=== PATIENT | male | born 1965 | race Caucasian/White ===

== ENCOUNTER 2018-10-31 20:31 | Inpatient (IN) | payer MEDICAID ==
[~2018-10-31] VITALS: Ht 167.6 cm; Wt 69.9 kg
[~2018-10-31 20:31] MED LIST: ACET-787 PO; BACL10TA4 PO; BISA10SU1 RC; DETLA4 PO; DIAZ10TA7 PO; DOCU-299 PO; ELA25 PO; GABA400C PO; HYD2.5O TP; KETO2CRE3 TP; MSCON15 PO; NITR100C7 PO; OMEP40EC1 PO; SILV-22 TP; SUCR1TAB35 PO; TEMA15CA24 PO; TIZA4CAP PO; [UNRECOGNIZED DRUG - CODE] PO
[2018-10-31 20:38] VITALS: BP 142/72
--- NOTE | 2018-10-31 20:38 | NUR ---
TO BED # 04 VIA W/C, REPORT GIVEN TO MACEY HOLDEN
--- NOTE | 2018-10-31 21:07 | NUR ---
PT TO ED WITH C/O ABNORMAL LABS. PER PT "MY SEMICONDUCTOR PROCESSOR CALLED ME AND SAID MY BLOOD COUNT IS OFF AND THAT I NEEDED TO COME TO THE NEAREST EMERGENCY DEPT." PT IS UNABLE TO CONFIRM WHAT LAB VALUES ARE ABNORMAL. PT PLACED INTO BED, PENDING MD CRAWFORD.
[2018-10-31] MEDS ORDERED: NACL 0.9% 1,000 ML IV ONE ×2 (21:35→22:45)
[2018-10-31] MEDS ORDERED: MORPHINE SULFATE 4 MG/ML SYR IVP ONE (21:35)
[2018-10-31 22:07] LABS: BASOPHILS % (AUTO) 0.4 % (0.0-2.0); EOSINOPHILS # (AUTO) 0.2 K/uL (0-0.4); EOSINOPHILS % (AUTO) 2.1 % (0.0-4.0); HEMATOCRIT 28.4 % (36-52); HEMOGLOBIN 9.8 g/dL (12.0-18.0); LYMPHOCYTES # (AUTO) 1.2 K/uL (2.0-11.5); LYMPHOCYTES % (AUTO) 10.8 % (20.5-51.1); MEAN CORPUSCULAR HEMOGLOBIN 31 pg (27-31); MEAN CORPUSCULAR HGB CONC 35 g/dL (33-37); MEAN CORPUSCULAR VOLUME 90.1 fL (80-94); MONOCYTES % (AUTO) 8.3 % (1.7-9.3); NEUTROPHILS % (AUTO) 78.4 % (42.2-75.2); PLATELET COUNT (AUTO) 269 K/uL (140-450); RED BLOOD CELL COUNT(AUTO) 3.15 MIL/uL (4.20-6.10); WHITE BLOOD COUNT (AUTO) 11.5 K/uL (4.8-10.8)
[2018-10-31 22:22] LABS: ALBUMIN 2.5 g/dL (3.4-5.0); ANION GAP 12.7 (8-16); CARBON DIOXIDE 28.4 mmol/L (21-32); CREATININE 0.5 mg/dL (0.7-1.3); POTASSIUM 3.1 mmol/L (3.5-5.1); TOTAL BILIRUBIN 2.2 mg/dL (0.0-1.0)
[2018-10-31 22:32] LABS: APPEARANCE,URINE SL CLOUDY (CLEAR); BILIRUBIN,URINE 1+ (NEGATIVE); BLOOD, URINE TRACE-I (NEGATIVE); COLOR,URINE YELLOW (YELLOW); LEUKOCYTE ESTERASE ,URINE NEGATIVE (NEGATIVE); NITRITE, URINE NEGATIVE (NEGATIVE); PH,URINE 6.5 (5.0-9.0); UGLUCOSE NEGATIVE (NEGATIVE)
[2018-10-31 22:51] LABS: RBC,URINE 0-5 /HPF (0-5)
[2018-10-31] MEDS ORDERED: ACETAMINOPHEN 325 MG TAB PO PRN (23:30)
[2018-10-31] MEDS ORDERED: HYDROcodone/APAP 7.5/325 MG 1 TAB PO PRN (23:30)
[2018-10-31] MEDS ORDERED: DOCUSATE SODIUM 100 MG GELCAP PO PRN (23:30)
[2018-10-31] MEDS ORDERED: cefTRIAXone 1,000 MG VIAL ONE (23:31)
[2018-10-31 23:43] LABS: PROTHROMBIN TIME 10.3 secs (10.8-13.4)
[2018-10-31 23:47] LABS: BARBITURATE, URINE NEG. ng/ml (NEG <=200); BENZODIAZEPINE, URINE POS. ng/mL (NEG <=200); CANNABINOID, URINE POS. ng/mL (NEG <=50); COCAINE, URINE NEG. ng/mL (NEG <=300); OPIATE, URINE NEG. ng/mL (NEG <=2000); PHENCYCLIDINE SCREEN,URINE NEG. ng/mL (NEG <=25)
--- NOTE | 2018-10-31 23:52 | NUR ---
Patient will be admitted to care of DR APODACA. Admited to MED SURG. Will go to room 111-B. Belongings list completed. Report to NAVIN PEDRAZA.
[2018-10-31 23:55] LABS: FREE T4 (FREE THYROXINE) 1.15 ng/dL (0.76-1.46); MAGNESIUM 1.9 mg/dL (1.8-2.4); PHOSPHORUS 2.5 mg/dL (2.5-4.9); THYROID STIMULATING HORMONE 0.96 uIU/mL (0.34-3.74)
[2018-11-01 00:20] VITALS: BP 124/68
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
[2018-11-01] MEDS: NACL 0.9% 1,000 ML IV SCH ×2 (00:29→12:30)
[2018-11-01] MEDS: ONDANSETRON 4 MG/2 ML VIAL IM/IVP PRN ×2 (00:48→08:13)
--- NOTE | 2018-11-01 00:48 | NUR ---
PATIENT COMPLAINED FEELING NAUSEOUS. PRN ZOFRAN ADMINISTER PER ORDER. WILL CONTINUE TO MONITOR.
--- NOTE | 2018-11-01 01:00 | NUR ---
PATIENT IV INFILTRATED. DISCONTINUE NO ACTIVE BLEEDING SEEN. CANNULA INTACT. INSERTED NEW IV LINE TO LEFT FOREARM 24G AND TOLERATED WELL. WILL CONTINUE TO MONITOR
--- NOTE | 2018-11-01 02:00 | NUR ---
CASTELLANOS INSERTED. PATIENT TOLERATED WELL
--- NOTE | 2018-11-01 04:00 | NUR ---
CHECKED PATIENT. PATIENT SLEEPING RESPIRATION EVEN UNLABORED ON ROOM AIR. NO DISTRESS NOTED. WILL CONTINUE TO MONITOR.
[2018-11-01 07:00] LABS: BASOPHILS # (AUTO) 0.1 K/uL (0.00-0.22); BASOPHILS % (AUTO) 0.5 % (0.0-2.0); EOSINOPHILS # (AUTO) 0.2 K/uL (0-0.4); EOSINOPHILS % (AUTO) 1.8 % (0.0-4.0); LYMPHOCYTES # (AUTO) 1.1 K/uL (2.0-11.5); LYMPHOCYTES % (AUTO) 9.7 % (20.5-51.1); MEAN CORPUSCULAR HEMOGLOBIN 31 pg (27-31); MEAN CORPUSCULAR HGB CONC 35 g/dL (33-37); MEAN CORPUSCULAR VOLUME 90.4 fL (80-94); MONOCYTES # (AUTO) 0.9 K/uL (0.8-1.0); MONOCYTES % (AUTO) 7.4 % (1.7-9.3); NEUTROPHILS # (AUTO) 9.5 K/uL (1.8-7.7); NEUTROPHILS % (AUTO) 80.6 % (42.2-75.2); PLATELET COUNT (AUTO) 258 K/uL (140-450); RED BLOOD CELL COUNT(AUTO) 2.87 MIL/uL (4.20-6.10); RED CELL DISTRIBUTION WIDTH 13.9 % (11.6-13.7); WHITE BLOOD COUNT (AUTO) 11.8 K/uL (4.8-10.8)
[2018-11-01 07:06] LABS: ANION GAP 14.7 (8-16); CREATININE 0.3 mg/dL (0.7-1.3)
--- NOTE | 2018-11-01 07:20 | NUR ---
ENDORSED PATIENT TO DAY SHIFT NURSE FOR CONTINUITY OF CARE. PATIENT IS STABLE.
--- NOTE | 2018-11-01 07:21 | NUR ---
RECEIVED REPORT FROM HOSPITAL CARRIER NURSE. PATIENT LYING DOWN IN BED, NO DISTRESS NOTED. COMPLAINS OF SHOULDER PAIN THAT IS WITHIN TOLERABLE AT THIS TIME. AAOX4, CALM, COOPERATIVE, PARAPLEGIC FROM WAIST DOWN. SKIN INTACT. IV SITE INTACT, PATENT, AND INFUSING IVF PER MD ORDERS. ABDOMEN SOFT, NON-DISTENDED. LUNGS CTA ON ALL LOBES. REVIEWED PLAN OF CARE WITH PATIENT. PATIENT VERBALIZED UNDERSTANDING. SAFETY MEASURES IN PLACE, CALL LIGHT WITHIN REACH. WILL CONTINUE TO MONITOR.
[2018-11-01 07:45] LABS: POTASSIUM 2.7 mmol/L (3.5-5.1)
[2018-11-01 08:00] VITALS: BP 132/78
--- NOTE | 2018-11-01 08:17 | NUR ---
PATIENT COMPLAINS OF NAUSEA, HAS SMALL AMOUNT OF VOMIT NOTED ABOUT 10 ML. ZOFRAN GIVEN AT THIS TIME. WILL CONTINUE TO MONITOR.
--- NOTE | 2018-11-01 08:38 | NUR ---
PATIENT HAS BEEN SCREENED AND CATEGORIZED HIGH NUTRITION RISK. PATIENT WILL BE SEEN WITHIN 1-2 DAYS OF ADMISSION. 11/01/18-11/02/[address]
[2018-11-01] MEDS ORDERED: NON-FORMULARY ITEM (Tizanidine HCl* (Zanaflex*) 4 MG) PO SCH (09:00)
[2018-11-01] MEDS ORDERED: POTASSIUM CHLORIDE 10 MEQ TABER PO SCH ×2 (09:00→17:00)
[2018-11-01] MEDS ORDERED: DANTROLENE SODIUM 25 MG PO SCH (09:00)
[2018-11-01] MEDS ORDERED: POTASSIUM CHLORIDE 40 MEQ, LIDOCAINE 1% 25 MG in NACL 0.9% 250 ML IV SCH (09:00)
--- NOTE | 2018-11-01 09:30 | NUR ---
PATIENT SITTING DOWN IN BED. NO DISTRESS NOTED. SCHEDULED MEDICATIONS DUE GIVEN. WILL CONTINUE TO MONITOR.
[2018-11-01] MEDS: LACTOBACILLUS RHAMNOSUS GG 1 EACH CAP PO SCH (10:01)
[2018-11-01] MEDS: GABAPENTIN 100 MG CAP PO SCH ×4 (10:02→21:07)
[2018-11-01] MEDS: BACLOFEN 10 MG TAB PO SCH ×4 (10:02→20:58)
[2018-11-01] MEDS ORDERED: BISACODYL 10 MG SUPP RC PRN (10:05)
[2018-11-01] MEDS ORDERED: SIMETHICONE 80 MG TAB.CHEW PO SCH (10:30)
[2018-11-01] MEDS ORDERED: SODIUM PHOSPHATE 118 ML ENEM RC SCH (10:30)
[2018-11-01] MEDS ORDERED: PROMETHAZINE 25 MG/ML VIAL IVP SCH (10:30)
--- NOTE | 2018-11-01 10:47 | NUR ---
PATIENT HAD SMALL VOMIT EPISODE, PHENERGAN GIVEN PER MD ORDERS. PATIENT REFUSED SIMETHICONE PO AT THIS TIME DUE TO NAUSEA/VOMITING. REQUESTS ENEMA TO BE PERFORMED LATER TODAY. WILL CONTINUE TO MONITOR.
[2018-11-01] MEDS: SIMETHICONE 80 MG TAB.CHEW PO SCH ×2 (13:40→17:14)
--- NOTE | 2018-11-01 13:43 | NUR ---
PATIENT LYING DOWN IN BED, REPORTS FEELING BETTER. DENIES NAUSEA/VOMITING. ABLE TO TAKE ORAL MEDICATIONS AT THIS TIME WITHOUT VOMITING. OTHER SCHEDULED MEDICATIONS DUE GIVEN. WILL CONTINUE TO MONITOR.
--- NOTE | 2018-11-01 14:19 | NUR ---
11/01/18 RD INITIAL ASSESSMENT COMPLETED PLEASE REFER TO NUTRITION ASSESSMENT UNDER CARE ACTIVITY FOR ESTIMATED NUTRITIONAL NEEDS. 1. CONTINUE REGULAR TOLERATED 2. RECOMMEND ENSURE BID 3. HEALTHY EATING EDUCATION WAS PROVIDED 4. RD TO FOLLOW-UP 3-5 DAYS, MODERATE RISK VENESSA ALVAREZ, RD
--- NOTE | 2018-11-01 15:30 | NUR ---
PATIENT LYING DOWN IN BED, SLEEPING, AROUSABLE BY VOICE. CONDITION UNCHANGED. WILL CONTINUE TO MONITOR.
[2018-11-01 15:53] LABS: ANION GAP 11.3 (8-16); CARBON DIOXIDE 28.6 mmol/L (21-32); CREATININE 0.4 mg/dL (0.7-1.3)
[2018-11-01 15:55] LABS: POTASSIUM 2.9 mmol/L (3.5-5.1)
[2018-11-01 16:00] VITALS: BP 135/82
[2018-11-01] MEDS ORDERED: POTASSIUM CHLORIDE 40 MEQ, LIDOCAINE MPF 1% - 5 mL VIAL 25 MG in NACL 0.9% 250 ML IV SCH (17:00)
--- NOTE | 2018-11-01 17:21 | NUR ---
PATIENT SITTING IN BED. NO DISTRESS NOTED. IV LINE HAS INFILTRATED. WILL START A NEW IV LINE. SCHEDULED MEDICATIONS DUE GIVEN. WILL CONTINUE TO MONITOR.
--- NOTE | 2018-11-01 19:28 | NUR ---
GAVE REPORT TO BACK SIZER NURSE FOR CONTINUITY OF CARE. PATIENT IN STABLE CONDITION.
--- NOTE | 2018-11-01 19:29 | NUR ---
RECD. RESTING ON BED, AWAKE, A/OX3. RESPIRATION EVEN AND UNLABORED. IV OF NS AT 80 ML/HR INFUSING, LEFT HAND G22. SAFETY MEASURES ENFORCED. BED ON ALARM, CALL LIGHT IN REACH. PARAPLEGIC, F/C PATENT DRAINING CLEAR YELLOW URINE. PLAN OF CARE FOR THE SHIFT DISCUSSED. VERBALIZED UNDERSTANDING. DENIES PAIN 0/10.
[2018-11-01] MEDS ORDERED: traZODone 50 MG TAB PO ONE (20:45)
[2018-11-01] MEDS ORDERED: GABAPENTIN 100 MG CAP ONE ×2 (20:57→21:14)
[2018-11-01] MEDS: SIMVASTATIN 20 MG TAB PO SCH (20:59)
--- NOTE | 2018-11-01 21:10 | NUR ---
DUE PO MEDICATIONS GIVEN, SNACK GIVEN REQUESTED.
[2018-11-01] MEDS ORDERED: GABAPENTIN 300 MG CAP ONE (21:13)
--- NOTE | 2018-11-01 22:10 | NUR ---
SHIVERING IN BED, TEMPERATURE CHECKED - 99.1 F. MADE WARM WITH BLANKETS.
--- NOTE | 2018-11-01 22:28 | NUR ---
Patient's Plan of Care was discussed and reviewed with BACK SHOE WORKER: SCARLETT MARIA.
--- NOTE | 2018-11-01 23:00 | NUR ---
RESTING IN BED, NO CHILLS NOTED TEMPERATURE CHECKED - 99/9 F. WILL CONTINUE TO MONITOR. NAUSEATED, REFUSED ZOFRAN, STATED HIS BODY HAS A BAD REACTION TO IT, REQUESTING FOR PHENERGAN, WILL INFORM DR. KOO.
[2018-11-01] MEDS: PROMETHAZINE 25 MG/ML VIAL IVP PRN (23:58)
--- NOTE | 2018-11-01 23:58 | NUR ---
VOMITTED CLEAR LIQUID APPROX 100 ML. MEDICATED WITH PHENERGAN 25 MG. IVP BY NAVIN CABEZAS.
[2018-11-02 00:15] VITALS: BP 90/47
--- NOTE | 2018-11-02 00:15 | NUR ---
TEMPERATURE CHECKED - 103. F, INFORMED DR. KOO.
--- NOTE | 2018-11-02 00:22 | NUR ---
COOLING MEASURES APPLIED, MEDICATED WITH TYLENOL 650 MG. PO.
[2018-11-02 00:48] LABS: ANION GAP 17.3 (8-16); CARBON DIOXIDE 21.8 mmol/L (21-32); CREATININE 0.7 mg/dL (0.7-1.3); POTASSIUM 3.1 mmol/L (3.5-5.1)
[2018-11-02] MEDS: NACL 0.9% 1,000 ML IV SCH ×2 (01:09→13:38)
--- NOTE | 2018-11-02 01:40 | NUR ---
TEMPERATURE CHECKED - 103.2 F AXILLARY, CONTINUED COOLING MEASURES, INFORMED DR. KOO.
[2018-11-02 01:49] VITALS: BP 105/58
--- NOTE | 2018-11-02 03:05 | NUR ---
TEMPERATURE CHECKED - 98.9 F, AFEBRILE, STILL SLEEPING COMFORTABLY SNORING IN BED.
--- NOTE | 2018-11-02 04:00 | NUR ---
K -LEVEL -3.1 PER RECENT LAB TEST. INFORMED DR. KOO, WILL CHECK FOR ANY NEW MEDICATION ORDER
[2018-11-02] MEDS ORDERED: POTASSIUM CHLORIDE 40 MEQ, LIDOCAINE MPF 1% - 5 mL VIAL 25 MG in NACL 0.9% 250 ML IV SCH (05:45)
--- NOTE | 2018-11-02 05:55 | NUR ---
INFORMED DR. KOO, NO READY PREPARED K RIDER WITH LIDOCAINE IN THE PYXIS, PHARMACY USUALLY PREPARES IT. SAYS OK TO BE GIVEN WHEN PHARMACY OPENS.
[2018-11-02] MEDS ORDERED: LORazepam 2 MG/ML VIAL IM/IVP PRN (06:40)
--- NOTE | 2018-11-02 06:57 | NUR ---
K LEVEL - 3.1, MEDICATED WITH K-DUR 20 MEQ PO ORDERED.
[2018-11-02] MEDS ORDERED: POTASSIUM CHLORIDE 10 MEQ TABER PO SCH ×2 (07:00→11:00)
[2018-11-02 07:01] LABS: HEMATOCRIT 30.8 % (36-52); HEMOGLOBIN 10.5 g/dL (12.0-18.0); MEAN CORPUSCULAR HEMOGLOBIN 31 pg (27-31); MEAN CORPUSCULAR HGB CONC 34 g/dL (33-37); MEAN CORPUSCULAR VOLUME 91.6 fL (80-94); PLATELET COUNT (AUTO) 293 K/uL (140-450); RED BLOOD CELL COUNT(AUTO) 3.37 MIL/uL (4.20-6.10); RED CELL DISTRIBUTION WIDTH 14.2 % (11.6-13.7); WHITE BLOOD COUNT (AUTO) 14.3 K/uL (4.8-10.8)
--- NOTE | 2018-11-02 07:15 | NUR ---
ENDORSED TO AM SHIFT NURSE FOR CONTINUITY OF CARE.
[2018-11-02 07:25] LABS: ANION GAP 14.9 (8-16); CARBON DIOXIDE 25.7 mmol/L (21-32); CREATININE 0.8 mg/dL (0.7-1.3); POTASSIUM 3.6 mmol/L (3.5-5.1)
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
[2018-11-02 07:27] LABS: MAGNESIUM 1.7 mg/dL (1.8-2.4); PHOSPHORUS 2.1 mg/dL (2.5-4.9)
[2018-11-02 07:38] LABS: BASOPHILS % (MANUAL) 0 % (0-2); EOSINOPHILS % (MANUAL) 0 % (0-4); LYMPHOCYTES % (MANUAL) 4 % (20-46); MONOCYTES % (MANUAL) 2 % (5-12)
[2018-11-02 08:00] VITALS: BP 93/56
[2018-11-02 08:23] LABS: FOLIC ACID 12.8 ng/mL (>3.0)
[2018-11-02] MEDS: GABAPENTIN 100 MG CAP PO SCH ×4 (08:53→20:56)
[2018-11-02] MEDS: SIMETHICONE 80 MG TAB.CHEW PO SCH ×3 (08:53→16:17)
[2018-11-02] MEDS: LACTOBACILLUS RHAMNOSUS GG 1 EACH CAP PO SCH (08:53)
[2018-11-02] MEDS: BACLOFEN 10 MG TAB PO SCH ×5 (08:54→21:00)
--- NOTE | 2018-11-02 09:27 | NUR ---
PT INFORMED THAT THE HOSPITAL DOESN'T HAVE DANTROLENE (ONE OF HIS HOME MEDS), AND SOMEONE FROM PT'S FAMILY WILL NEED TO BRING THE DANTROLENE. PT SAID THAT HE WILL ASK HIS SON TO BRING IT TODAY.
--- NOTE | 2018-11-02 10:15 | NUR ---
AM MEDS ADMINISTERED, PT TOLERATED WELL. HOLDING THE ONE DOSE OF IV POTASSIUM (SCHEDULED AT 05:45 AM), PT'S POTASSIUM IS 3.6 TODAY, IS AWARE.
--- NOTE | 2018-11-02 10:45 | NUR ---
PT SEEN BY WOUND CARE NURSE.
[2018-11-02] MEDS ORDERED: VANCOMYCIN PER PHARMACY MC PRN (10:50)
[2018-11-02] MEDS ORDERED: MAGNESIUM OXIDE 400 MG TAB PO SCH (11:00)
--- NOTE | 2018-11-02 11:11 | NUR ---
PT HAVING US OF LLE AT THIS TIME
[2018-11-02] MEDS: SODIUM PHOS / POTASSIUM PHOS 1 PKT PDR PO SCH ×2 (12:41→16:19)
[2018-11-02] MEDS: VANCOMYCIN 1GM/DEXT 5% PREMIX 200 ML IV SCH (12:43)
--- NOTE | 2018-11-02 13:14 | NUR ---
AFTERNOON MEDS ADMINISTERED. IV VANCO HUNG AND DRIPPING. PT REQUESTED A HAMBURGER FOR LUNCH, HE STATES THAT HE DOESN'T LIKE THE REGULAR FOOD HERE. CALL LIGHT WITHIN REACH, WILL CONTINUE TO MONITOR.
--- NOTE | 2018-11-02 14:32 | NUR ---
PT'S SON VISITING AT BEDSIDE. PT'S SON DID NOT BRING PT'S DANTROLENE HOME MED
--- NOTE | 2018-11-02 14:36 | NUR ---
PT SEEN BY DR COATES REGARDING POSSIBLE COLONOSCOPY
[2018-11-02 15:57] VITALS: BP 98/56
[2018-11-02] MEDS: POTASSIUM CHL 20MEQ/D5-NS 1,000 ML IV SCH (16:10)
[2018-11-02] MEDS ORDERED: BOWEL EVACUANT DRINK 4,000 ML PDS PO SCH (17:00)
[2018-11-02] MEDS: LACTULOSE 20 GM/30 ML UDC PO SCH (17:37)
[2018-11-02] MEDS: SENNA 8.6 MG TAB PO SCH ×3 (17:39→21:08)
[2018-11-02] MEDS: METOCLOPRAMIDE 10 MG/2 ML INJ VIAL IVP SCH (17:49)
--- NOTE | 2018-11-02 17:50 | NUR ---
BOWEL PREP MEDICINE ADMINISTERED, AND PT INSTRUCTED TO ACTIVELY DRINK GOLYTELY. PT VERBALIZED UNDERSTANDING.
--- NOTE | 2018-11-02 19:30 | NUR ---
PT ENDORSED TO DATABASE SOFTWARE TECHNICIAN IN STABLE CONDITION.
--- NOTE | 2018-11-02 19:31 | NUR ---
RECEIVED BEDSIDE REPORT FROM DAY SHIFT RN, PATIENT IN STABLE CONDITION, NO SIGNS OF DISTRESS ON RA, PATIENT AWAKE AND ALERT, BED LOW, CALL LIGHT IN REACH. WILL CONTINUE TO MONITOR.
--- NOTE | 2018-11-02 20:55 | NUR ---
PATIENT IV SITE IN LEFT HAND HAS INFILTRATED. DC IV WITH TIP INTACT, SEE INTERVENTION FOR DETAILS. REINSERTED NEW IV TO UPPER ARM.
[2018-11-02] MEDS: SIMVASTATIN 20 MG TAB PO SCH ×2 (20:56→21:00)
--- NOTE | 2018-11-02 20:56 | NUR ---
ADMINISTERED SCHEDULED MEDICATIONS. PATIENT COMPLAINED OF NAUSEA, ADMINISTERED PRN MEDICATIONS FOR NAUSEA. PATIENT UNABLE TO DRINK BOWEL PREP DUE TO NAUSEA, WILL CONTINUE TO MONITOR.
[2018-11-02] MEDS: PROMETHAZINE 25 MG/ML VIAL IVP PRN (21:08)
--- NOTE | 2018-11-02 21:50 | NUR ---
PATIENT REFUSED PO MEDICATIONS DUE TO NAUSEA, REQUESTED TO TAKE THEM AT A LATER TIME, BUT WAS UNABLE TO DUE TO CONTINUED NAUSEA. MEDICATIONS NOT-ADMINISTERED.
[2018-11-02] MEDS ORDERED: MAGNESIUM CITRATE 300 ML BTL PO SCH (22:00)
--- NOTE | 2018-11-02 22:00 | NUR ---
PATIENT HAS VOMITED, NO NAUSEA MEDICATIONS AVAILABLE AT THIS TIME, PATIENT RECENTLY RECEIVED PRN NAUSEA MEDICATION. PROVIDED CLEAN EMESIS BAG, AND COMFORT MEASURES. WILL CONTINUE TO MONITOR.
[2018-11-02] MEDS ORDERED: INFLUENZA VIRUS VACCINE QUAD 0.5 ML SYR IMVAC PRN (23:20)
--- NOTE | 2018-11-03 | NUR ---
ADMINISTERED SCHEDULED MEDICATIONS AND TOOK VITALS SIGNS, PATIENT STILL HAS NAUSEA. VITAL SIGNS STABLE. CALL LIGHT WITHIN REACH, WILL CONTINUE TO MONITOR.
[2018-11-03] MEDS: METOCLOPRAMIDE 10 MG/2 ML INJ VIAL IVP SCH ×5 (00:14→23:50)
[2018-11-03] MEDS: VANCOMYCIN 1GM/DEXT 5% PREMIX 200 ML IV SCH ×3 (00:14→21:14)
[2018-11-03 00:30] VITALS: BP 115/63
[2018-11-03] MEDS ORDERED: PANTOPRAZOLE 40 MG INJ VIAL IVP ONE (00:45)
[2018-11-03] MEDS: POTASSIUM CHL 20MEQ/D5-NS 1,000 ML IV SCH ×3 (02:10→22:10)
--- NOTE | 2018-11-03 02:12 | NUR ---
PATIENT SLEEPING, NO SIGNS OF DISTRESS, BED LOW, CALL LIGHT IN REACH. WILL CONTINUE TO MONITOR.
--- NOTE | 2018-11-03 04:16 | NUR ---
PATIENT IS REQUESTING AN ENEMA, HE HAS NOT PASSED STOOL SINCE HE BEGAN THE BOWEL PREP LAST NIGHT. HE HAS NOT BEEN ABLE TO TOLERATE THE BOWEL PREP DUE TO CONTINUED NAUSEA. SPOKE WITH RESIDENT. WILL PLACE ORDER FOR ENEMA.
[2018-11-03] MEDS ORDERED: SODIUM PHOSPHATE 118 ML ENEM RC PRN (04:20)
[2018-11-03] MEDS: PROMETHAZINE 25 MG/ML VIAL IVP PRN ×3 (05:10→19:08)
--- NOTE | 2018-11-03 07:25 | NUR ---
ENDORSED PT TO DAY SHIFT NURSE RODGER RN, PT STABLE, NO DISTRESS NOTED, CALL LIGHT WITHIN REACH.
--- NOTE | 2018-11-03 07:25 | NUR ---
RECEIVED PT REPORT FROM DRUG SAFETY SPECIALIST NURSE, PT IS AWAKE AND GETTING CLEANED UP AFTER HAVING A LARGE BM. PT'S BM IS CURRENTLY LIQUID BUT BROWN IN COLOR. PER NIGHT NURSE, PT HAS NOT BEEN ABLE TO DRINK HIS GOLYTELY BECAUSE IT'S BEEN CAUSING NAUSEA AND VOMITING (PT DID RECEIVE ANTI-NAUSEA MEDICATIONS FROM DRUG SAFETY SPECIALIST NURSE). PER PT, HE VOMITED 3 TIMES LAST NIGHT. PT IS AWARE THAT HE NEEDS TO FINISH THE ENTIRE 2000 ML OF GOLYTELY, BUT SAYS HE HAS A HARD TIME DRINKING IT DUE TO THE NAUSEA. WILL CONTINUE TO MONITOR PT AND HIS BM FOR PLANNED COLONOSCOPY TODAY, AND ADMINISTER PRN NAUSEA MEDS. CALL LIGHT IS WITHIN REACH, FALL ARE PRECAUTIONS IN PLACE.
[2018-11-03 08:00] VITALS: BP 126/76
[2018-11-03] MEDS: GABAPENTIN 100 MG CAP PO SCH ×4 (09:06→21:19)
[2018-11-03] MEDS: LACTULOSE 20 GM/30 ML UDC PO SCH ×2 (09:06→12:58)
[2018-11-03] MEDS: BACLOFEN 10 MG TAB PO SCH ×4 (09:06→21:19)
[2018-11-03] MEDS: LACTOBACILLUS RHAMNOSUS GG 1 EACH CAP PO SCH (09:07)
[2018-11-03] MEDS: SENNA 8.6 MG TAB PO SCH ×4 (09:07→21:19)
[2018-11-03] MEDS: SODIUM PHOS / POTASSIUM PHOS 1 PKT PDR PO SCH (09:07)
[2018-11-03] MEDS: PANTOPRAZOLE 40 MG INJ VIAL IVP SCH (09:07)
[2018-11-03] MEDS ORDERED: PROMETHAZINE 25 MG/ML VIAL IM/IVP SCH (09:15)
--- NOTE | 2018-11-03 09:23 | NUR ---
AM MEDS ADMINISTERED, PT ASKED FOR A DOSE OF PHENERGAN SO HE CAN CONTINUE DRINKING GOLYTELY. MD NOTIFIED AND ORDERED A ONE TIME DOSE OF IV PHENERGAN FOR NOW; ADMINISTERED. PT INSTRUCTED TO DRINK GOLYTELY, HE VERBALIZED UNDERSTANDING WILL CONTINUE TO MONITOR.
--- NOTE | 2018-11-03 10:20 | NUR ---
PT ASKING TO TALK TO HIS NETWORK PROGRAMMER. I ASKED PT WHAT HE WANTED TO TALK ABOUT, AND HE SAID HE HAS SOME QUESTIONS FOR THE NETWORK PROGRAMMER. SPOKE TO JANEL GAMBINO, SHE SAID SHE WILL COME TALK WITH PT.
--- NOTE | 2018-11-03 11:37 | NUR ---
Spoke with patient and he would want same Home Health when he is discharge from the hospital. He was seen by [facility] JANEL is [place].
--- NOTE | 2018-11-03 12:25 | NUR ---
AUTHORIZATION OBTAINED FROM PT, FAXED REQUEST FOR MEDICAL RECORDS TO [facility].
--- NOTE | 2018-11-03 13:31 | NUR ---
PT STATES HE IS UNABLE TO DRINK ANYMORE GOLYTELY, IT IS MAKING HIM VERY NAUSEOUS, EVEN WITH THE NAUSEA MEDICATIONS. HE ASKED IF HE COULD HAVE ANOTHER ENEMA. FLEET ENEMA ADMINISTERED.
--- NOTE | 2018-11-03 13:48 | NUR ---
GOT A CALL FROM MEATCUTTER BARB, SHE SAYS HIDA SCAN WILL BE DONE AT ABOUT 16:00 - 16:30
--- NOTE | 2018-11-03 14:15 | NUR ---
PT HAD A MEDIUM SOFT BROWN BM. DR COATES IS AWARE OF PT'S STOOL CONSISTENCY AND PT'S RELUCTANCE TO DO BOWEL PREP AND MAINTAIN NPO.
--- NOTE | 2018-11-03 15:00 | NUR ---
PT SEEN BY DR HARDING. PER PT, HE IS RECONSIDERING HAVING A COLONOSCOPY AT THIS FACILITY, AND MIGHT HAVE IT OUTPATIENT. PER PT, HE WANTS TO EAT AND DOES NOT WANT TO BE NPO ANYMORE.
[2018-11-03 16:00] VITALS: BP 129/79
--- NOTE | 2018-11-03 17:15 | NUR ---
PT TAKEN OFF THE UNIT FOR HIDA SCAN AT THIS TIME.
--- NOTE | 2018-11-03 18:45 | NUR ---
PT BACK ON THE FLOOR FROM HIDA SCAN
--- NOTE | 2018-11-03 19:15 | NUR ---
PT ENDORSED TO LOG HOOKER NURSE IN STABLE CONDITION.
--- NOTE | 2018-11-03 19:15 | NUR ---
RECEIVED ENDORSEMENT OF CARE, FROM RODGER HOLDEN DAYSHIFT NURSE AT BEDSIDE FOR CONTINUITY OF CARE, PT IN STABLE CONDITION.
--- NOTE | 2018-11-03 20:00 | NUR ---
PT IN BED ALL FALLS PRECAUTIONS IN PLACE. PT IS AOX4, HE HAS LURDES ON RIGHT LEG FROM POST SURGERY OF ORIF AT [facility]. V/S FOLLOWS T 98.3 P 96 R 20 B/P 132/79 02 98% ON ROOM AIR. ALL REQUESTED NEEDS ATTENDED BY STAFF.
[2018-11-03] MEDS: SIMVASTATIN 20 MG TAB PO SCH (21:19)
--- NOTE | 2018-11-03 23:30 | NUR ---
PT C/O OF ROOM MATE SNORING. PT GIVEN EAR PLUGS, BUT IS REQUESTING TO MOVE ROOMS. PT ALSO REQUESTING PAIN MEDICATION FOR LEFT LOWER LEG. PT GIVEN NORCO PO/PRN. SPOKE WITH RESIDENT PHYSICIAN SURGEON DR. KOO , WHO ORDERED AN AMBIEN PO/PRN.
--- NOTE | 2018-11-03 23:45 | NUR ---
ALL FALLS PRECAUTIONS IN PLACE V/S FOLLOWS T 97.8 P 88 R 18 B/P 122/69 02 99% ON ROOM AIR.
[2018-11-04] VITALS: BP 122/69
[2018-11-04] MEDS ORDERED: ZOLPIDEM 5 MG TAB PO ONE (00:15)
--- NOTE | 2018-11-04 00:45 | NUR ---
PT IN BED ASLEEP, ALL FALLS PRECAUTIONS IN PLACE. WILL CONTINUE TO MONITOR FOR SLEEP, ANY DISCOMFORT AND SAFETY PRECAUTIONS .
[2018-11-04] MEDS ORDERED: ZOLPIDEM 5 MG TAB ONE (02:42)
--- NOTE | 2018-11-04 02:45 | NUR ---
PT WOKE UP AND REQUESTED PRN SLEEPING PILL AND EAR PLUGS DUE TO ROOM MATE SNORING, REQUESTS GRANTED, PT TOOK PO/PRN AMBIEN AND EAR PLUGS GIVEN REQUESTED.
[2018-11-04] MEDS: VANCOMYCIN 1GM/DEXT 5% PREMIX 200 ML IV SCH ×2 (05:01→13:00)
[2018-11-04] MEDS: METOCLOPRAMIDE 10 MG/2 ML INJ VIAL IVP SCH ×2 (05:03→12:00)
--- NOTE | 2018-11-04 05:09 | NUR ---
PT IN BED SLEEPING, ALL FALLS AND SEIZURE PRECAUTIONS IN PLACE. PT GIVEN ORDERED BOSTON AND VANCOMYCIN RUNNING AT 135 ORDERED.
--- NOTE | 2018-11-04 06:45 | NUR ---
PT IN BED ASLEEP CASTELLANOS CATHETER IN PLACE AND DRAINED 1150 OF DARK CARROLL URINE. ALL FALLS AND SEIZURE PRECAUTIONS IN PLACE. WILL ENDORSE CARE TO NEXT SHIFT.
[2018-11-04 07:04] LABS: MAGNESIUM 2.1 mg/dL (1.8-2.4); PHOSPHORUS 2.4 mg/dL (2.5-4.9)
[2018-11-04 07:06] LABS: ANION GAP 11.8 (8-16); CARBON DIOXIDE 26.4 mmol/L (21-32); CREATININE 0.4 mg/dL (0.7-1.3); POTASSIUM 3.2 mmol/L (3.5-5.1)
[2018-11-04 07:07] LABS: BASOPHILS # (AUTO) 0.1 K/uL (0.00-0.22); BASOPHILS % (AUTO) 0.7 % (0.0-2.0); EOSINOPHILS # (AUTO) 0.3 K/uL (0-0.4); EOSINOPHILS % (AUTO) 2.4 % (0.0-4.0); HEMOGLOBIN 9.4 g/dL (12.0-18.0); LYMPHOCYTES # (AUTO) 1.5 K/uL (2.0-11.5); LYMPHOCYTES % (AUTO) 13.6 % (20.5-51.1); MEAN CORPUSCULAR HEMOGLOBIN 32 pg (27-31); MEAN CORPUSCULAR HGB CONC 35 g/dL (33-37); MEAN CORPUSCULAR VOLUME 90.8 fL (80-94); MONOCYTES # (AUTO) 0.7 K/uL (0.8-1.0); MONOCYTES % (AUTO) 6.1 % (1.7-9.3); NEUTROPHILS # (AUTO) 8.8 K/uL (1.8-7.7); NEUTROPHILS % (AUTO) 77.2 % (42.2-75.2); PLATELET COUNT (AUTO) 333 K/uL (140-450); RED BLOOD CELL COUNT(AUTO) 2.97 MIL/uL (4.20-6.10); RED CELL DISTRIBUTION WIDTH 14.6 % (11.6-13.7); WHITE BLOOD COUNT (AUTO) 11.4 K/uL (4.8-10.8)
--- NOTE | 2018-11-04 07:15 | NUR ---
RECEIVED BEDSIDE REPORT FROM NAVIN GLYNN. PT STABLE, AWAKE, AND ALERT AND ORIENTED X4. NO SIGNS OF DISTRESS NOTED. DENIES PAIN OR SOB. NO REDNESS, SWELLING, OR INFLAMMATION NOTED ON IV SITE. CALL NICHOLSON WITHIN REACH. BED IN LOWEST POSITION. BED ALARM ON. SAFETY MEASURES IN PLACE. PLAN OF CARE REVIEWED.
[2018-11-04 08:00] VITALS: BP 134/77
[2018-11-04] MEDS: POTASSIUM CHL 20MEQ/D5-NS 1,000 ML IV SCH (08:10)
[2018-11-04] MEDS ORDERED: MAGNESIUM OXIDE 400 MG TAB PO SCH (09:00)
[2018-11-04] MEDS: PROMETHAZINE 25 MG/ML VIAL IVP PRN (09:24)
[2018-11-04] MEDS: BACLOFEN 10 MG TAB PO SCH ×2 (09:28→14:53)
[2018-11-04] MEDS: SENNA 8.6 MG TAB PO SCH ×2 (09:29→14:53)
[2018-11-04] MEDS: PANTOPRAZOLE 40 MG INJ VIAL IVP SCH (09:29)
[2018-11-04] MEDS: GABAPENTIN 100 MG CAP PO SCH ×2 (09:29→14:53)
[2018-11-04] MEDS: LACTOBACILLUS RHAMNOSUS GG 1 EACH CAP PO SCH (09:29)
--- NOTE | 2018-11-04 09:44 | NUR ---
ADMINISTERED MEDS INCLUDING PRN NAUSEA MED. EDUCATED PATIENT ON SIDE EFFECTS. PATIENT VERBALIZED UNDERSTANDING. WILL CONTINUE TO MONITOR THE PATIENT.
[2018-11-04] MEDS ORDERED: LACT1.4C PO (10:15)
[2018-11-04] MEDS ORDERED: POTASSIUM CHLORIDE 10 MEQ TABER PO SCH (10:15)
[2018-11-04] MEDS ORDERED: SULF-59 PO (10:15)
--- NOTE | 2018-11-04 11:15 | NUR ---
ADMINISTERED SCHEDULED MEDICATION, PT TOLERATED WELL. NO OTHER NEEDS AT THIS TIME.
--- NOTE | 2018-11-04 11:22 | NUR ---
RECEIVED ORDER TO RESUME HOME HEALTH. CALLED [facility], AND SPOKW WITH LINDA, . FAXED ORDER AND INFORMATION TO HER AT [phone]. CALLED [facility] AND SPOKE WITH JESSICA. SHE SAID THE CM IS KYLER, X [phone]. JESSICA SAID TO FAX THE H&P AND ORDER TO THEM AT [phone] AND SHE WOULD INFORM MINA.
--- NOTE | 2018-11-04 14:50 | NUR ---
ADMINISTERED SCHEDULED MEDICATIONS, PT TOLERATED WELL. NO OTHER NEEDS AT THIS TIME.
--- NOTE | 2018-11-04 15:00 | NUR ---
D/C PAPERWORKS AND INSTRUCTIONS GIVEN. PT VERBALIZED UNDERSTANDING. PT STABLE. D/C IV, CATHETER TIP INTACT, BLEEDING CONTROLLED. PT REFUSED INFLUENZA VACCINE. DISCHARGE PICTURE TAKEN. ESCORTED PT TO THE LOBBY.
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
== END 2018-11-04 15:00 | disposition home health service (06) | DRG 720 ==
LOC: MED 20:31 → MTU 23:28
PROVIDERS: ADMIT General Practice; ATTEND General Practice
PROC: 3E0234Z Introduction of Serum, Toxoid and Vaccine into Muscle, Percutaneous Approach (ICD-10-PCS; principal; 2018-11-02)
DX: A41.9 Sepsis, unspecified organism (principal); E43 Unspecified severe protein-calorie malnutrition; N39.0 Urinary tract infection, site not specified; E87.1 Hypo-osmolality and hyponatremia; E87.6 Hypokalemia; F44.4 Conversion disorder with motor symptom or deficit; Z96.651 Presence of right artificial knee joint; G89.29 Other chronic pain; E78.5 Hyperlipidemia, unspecified; F12.90 Cannabis use, unspecified, uncomplicated; N20.0 Calculus of kidney; D64.9 Anemia, unspecified; E83.39 Other disorders of phosphorus metabolism; Z68.24 Body mass index [BMI] 24.0-24.9, adult; Z99.3 Dependence on wheelchair; Z23 Encounter for immunization
CPT/HCPCS: 36415; 71045; 73562; 73700; 74018; 76700; 76881; 78445; 80048; 80053; 80202; 80305; 81001; 82272; 82607; 82728; 82746; 83036; 83540; 83605; 83690; 83735; 83880; 84100; 84439; 84443; 85025; 85045; 85610; 85730; 87040; 87081; 87086; 93005; 93970; 96361; 96374; 96375; 97110; 97530; 99285; C9113; J0696; J1644; J2001; J2270; J2405; J2550; J2765; J3370; J3480; J7030; J7060; Q0092

== ENCOUNTER 2018-11-10 23:24 | Emergency (ER) | payer MEDICAID ==
[~2018-11-10] VITALS: Ht 167.6 cm; Wt 66.2 kg
[~2018-11-10 23:24] MED LIST changes: +LACT1.4C PO; +SULF-59 PO
[2018-11-10 23:32] VITALS: BP 126/77
--- NOTE | 2018-11-10 23:33 | NUR ---
German veloz in [facility] - 11/10/18 at 2338 by AVANI TO BED # 03 VIA W/C
--- NOTE | 2018-11-10 23:35 | NUR ---
TO LOBBY A/W BED, VIA W/C, JOSEPH DOSS NOTED
--- NOTE | 2018-11-11 00:07 | NUR ---
PT BIB WHEELCHAIR TO ER BED 7
--- NOTE | 2018-11-11 00:25 | NUR ---
FIRST CONTACT WITH PATIENT PT BIB SELF C/O URINARY RETENTION X 10 HOURS, CASTELLANOS CATH PLACED BY UROLOGIST ON WEDNESDAY AND HAS HAD IT IRRIGATED SEVERAL TIMES SINCE THEN. LAST IRRIGATION WAS YESTERDAY AT 1400. DENIES PAIN, PATIENT PLACED IN GOWN, BED IN LOW POSITION/LOCKED, SIDE RAILS UP X 1. REPORT TO LITA HOLDEN.
--- NOTE | 2018-11-11 01:40 | NUR ---
PT'S CASTELLANOS REMOVED, OCCLUSION NOTED. IMMEDIATE VOID FROM URETHRA. New Castellanos placed. # 16 FR Castellanos catheter with 10 ml utilizing sterile technique. Immediate return of 100 ml dark yellow, turbid urine noted. Bedside drainage bag placed below level of bladder. Urine sample collected and sent to lab. Pt tolerated procedure well.
[2018-11-11] MEDS ORDERED: ACETAMINOPHEN 325 MG TAB PO ONE (02:10)
[2018-11-11 02:20] VITALS: BP 136/58
--- NOTE | 2018-11-11 02:20 | NUR ---
Patient discharged with v/s stable. Written and verbal after care instructions given and explained. Patient alert, oriented and verbalized understanding of instructions. Wheel Chair by self to home. All questions addressed prior to discharge. ID band removed. Patient advised to follow up with PMD/Urologist. Rx of Levoflaxacin given. Patient educated on indication of medication including possible reaction and side effects. Opportunity to ask questions provided and answered.
--- NOTE | 2018-11-13 17:41 | NUR ---
ADDENDUM: URINE CULTURE RESULTS: E.COLI MDRO. REFERRED TO DR. SPEARS. CALLED PHARMACY FOR NEW PRESCRIPTION , MACROBID 100 MG. PO BID DISPENSED #20. CALLED AND INSTRUCTED PATIENT TO STOP TAKING LEVOFLAXACIN WITH UNDERSTANDING.
== END 2018-11-11 02:20 | disposition home or self-care (01) ==
LOC: MED 23:24
DX: T83.011A Breakdown (mechanical) of indwelling urethral catheter, initial encounter (principal); R33.9 Retention of urine, unspecified; K21.9 Gastro-esophageal reflux disease without esophagitis; F41.9 Anxiety disorder, unspecified; Z79.899 Other long term (current) drug therapy; Y73.8 Miscellaneous gastroenterology and urology devices associated with adverse incidents, not elsewhere classified
CPT/HCPCS: 51702; 81002; 87086; 87186; 99284

== ENCOUNTER 2019-12-22 19:18 | Emergency (ER) | payer MEDICAID ==
[~2019-12-22] VITALS: Ht 167.6 cm; Wt 70.3 kg
[~2019-12-22 19:18] MED LIST changes: -OMEP40EC1 PO; +OMEP40EC24 PO
[2019-12-22 19:30] VITALS: BP 120/85
[2019-12-22 20:37] VITALS: BP 1/85
== END 2019-12-22 20:38 | disposition home or self-care (01) ==
LOC: MED 19:18
DX: S90.111A Contusion of right great toe without damage to nail, initial encounter (principal); K21.9 Gastro-esophageal reflux disease without esophagitis; Z79.899 Other long term (current) drug therapy; Z98.890 Other specified postprocedural states; X58.XXXA Exposure to other specified factors, initial encounter; Y93.89 Activity, other specified; Y92.89 Other specified places as the place of occurrence of the external cause; Y99.8 Other external cause status
CPT/HCPCS: 73630; 99283

== ENCOUNTER 2020-01-09 15:16 | Inpatient (IN) | payer MEDICAID ==
[~2020-01-09] VITALS: Ht 167.6 cm; Wt 63.5 kg
[2020-01-09 15:17] VITALS: BP 108/72
--- NOTE | 2020-01-09 15:22 | NUR ---
A WHEELCHAIR BOUND PT PRESENTS TO THE ER FOR CONSTANT NON-RADIATING PRESSURE PERICORDIAL CP WITH SLIGHT SOB FOR 3 DAYS. HR EVEN AND REGULAR; PT DENIES ANY N/V/D, FEVER, CP, SOB, OR COUGH AT THIS TIME; PATIENT STATES PAIN OF 6/10 AT THIS TIME; VSS; PATIENT POSITIONED FOR COMFORT; HOB ELEVATED; BEDRAILS UP X2; BED DOWN. ER MD MADE AWARE OF PT STATUS. PMH: TRAUMATIC PARAPLEGIA, ANXIETY, HIGH CHOLESTEROL, BIPOLAR, GERD
[2020-01-09] MEDS ORDERED: NITROGLYCERIN 0.4 MG TAB SL ONE ×3 (15:50→16:35)
[2020-01-09] MEDS ORDERED: ASPIRIN 325 MG TAB PO ONE (15:50)
[2020-01-09 16:18] LABS: BASOPHILS # (AUTO) 0.1 K/uL (0.00-0.22); BASOPHILS % (AUTO) 1.4 % (0.0-2.0); EOSINOPHILS # (AUTO) 0.2 K/uL (0-0.4); EOSINOPHILS % (AUTO) 1.8 % (0.0-4.0); HEMATOCRIT 46.9 % (36-52); LYMPHOCYTES # (AUTO) 1.7 K/uL (2.0-11.5); LYMPHOCYTES % (AUTO) 19.8 % (20.5-51.1); MEAN CORPUSCULAR HEMOGLOBIN 32 pg (27-31); MEAN CORPUSCULAR HGB CONC 34 g/dL (33-37); MEAN CORPUSCULAR VOLUME 93.5 fL (80-94); MONOCYTES # (AUTO) 0.8 K/uL (0.8-1.0); MONOCYTES % (AUTO) 9.7 % (1.7-9.3); NEUTROPHILS # (AUTO) 5.6 K/uL (1.8-7.7); NEUTROPHILS % (AUTO) 67.3 % (42.2-75.2); PLATELET COUNT (AUTO) 215 K/uL (140-450); RED BLOOD CELL COUNT(AUTO) 5.01 MIL/uL (4.20-6.10); RED CELL DISTRIBUTION WIDTH 14.2 % (11.6-13.7); WHITE BLOOD COUNT (AUTO) 8.4 K/uL (4.8-10.8)
[2020-01-09 16:35] LABS: PROTHROMBIN TIME 9.7 secs (10.8-13.4)
[2020-01-09 16:36] LABS: ALBUMIN 3.5 g/dL (3.4-5.0); ANION GAP 7.1 (8-16); CARBON DIOXIDE 33.9 mmol/L (21-32); CREATININE 0.6 mg/dL (0.6-1.3); TOTAL BILIRUBIN 0.5 mg/dL (0.0-1.0)
--- NOTE | 2020-01-09 16:38 | NUR ---
PT STATES HE HAS NO CP AT THIS TIME AFTER TAKING THREE DOSES OF NITROSTAT 0.4MG.
--- NOTE | 2020-01-09 17:10 | NUR ---
PT IS RESTING IN THE BED WITH VSS.
[2020-01-09] MEDS ORDERED: DOCUSATE SODIUM 100 MG GELCAP PO PRN (18:00)
[2020-01-09] MEDS ORDERED: MORPHINE SULFATE 2 MG/ML SYR IVP PRN (18:00)
[2020-01-09] MEDS ORDERED: NITROGLYCERIN 0.4 MG TAB SL PRN (18:05)
--- NOTE | 2020-01-09 18:40 | NUR ---
RECEIVED REPORT FROM ER NURSE, LENY. PT STABLE, AA0X4, PT PARAPLEGIC, PT DX CHEST PAIN, LEFT FA 20G, SKIN INTACT, PT ON CARDIAC DIET, INTRODUCE PT TO THE ROOM, UPDATED WHITEBOARD, DR MACIAS AT BEDSIDE DOING ASSESSMENT, OBTAINED MRSA SWAB OF NARES, CALL LIGHT WITHIN REACH, ALL NEEDS MET AT THIS TIME.
--- NOTE | 2020-01-09 18:40 | NUR ---
Patient will be admitted to care of CP. Admited to TELEMETRY. Will go to room 122A. Belongings list completed. Report to NAVIN HENRY.
[2020-01-09 19:04] LABS: PHOSPHORUS 3.4 mg/dL (2.5-4.9); THYROID STIMULATING HORMONE 1.18 uIU/mL (0.34-3.74)
--- NOTE | 2020-01-09 19:22 | NUR ---
GAVE REPORT TO NIGHT NURSE FOR CONTINUITY OF CARE, PT IS STABLE
--- NOTE | 2020-01-09 19:30 | NUR ---
RECEIVED BEDSIDE REPORT FORM AM RN. RECEIVED PT A/A/OX4,SITTING UP IN BED WATCHING TV. PT IS A NEW ADMISSION. PT MADE AWARE THAT ITS A CHANGED OF SHIFT AND I'LL BE BACK TO START THE ADMISSION PROCESS AFTER THE SHIFT REPORT. PT ON DOWNSTAIRS MAID, SHOWING SR, HR 60'S TO 70'S.ORIENTED THE PT TO THE ROOM SETTING AND USE OF CALL LIGHT SYSTEM. VERBALIZED UNDERSTANDING WITH THE POC. CALL LIGHT WITHIN REACH. WILL CONTINUE POC AND MONITORING.
[2020-01-09 20:00] VITALS: BP 131/68
--- NOTE | 2020-01-09 20:00 | NUR ---
PT DENIES CHEST PAIN,SOB AND DIZZINESS AT THIS TIME. NSR ON EDITORIAL CLERK, HR 73. CALL LIGHT WITHIN REACH.
[2020-01-09] MEDS: SIMVASTATIN 20 MG TAB PO SCH (20:25)
[2020-01-09] MEDS: ACETAMINOPHEN 325 MG TAB PO PRN (20:25)
[2020-01-09] MEDS: ONDANSETRON 4 MG/2 ML VIAL IM/IVP PRN (20:25)
[2020-01-09] MEDS: NACL 0.9% 1,000 ML IV SCH (20:25)
[2020-01-09] MEDS: BACLOFEN 10 MG TAB PO SCH (20:52)
[2020-01-09] MEDS: DOCUSATE SODIUM 100 MG GELCAP PO SCH (20:52)
[2020-01-09] MEDS: tiZANidine 4 MG TAB PO SCH (20:52)
[2020-01-09] MEDS ORDERED: DIAZEPAM 5 MG TAB PO SCH (21:00)
[2020-01-09] MEDS ORDERED: AMITRIPTYLINE 25 MG TAB PO SCH (21:00)
--- NOTE | 2020-01-09 21:30 | NUR ---
OBTAINED ADMISSION [id number] FROM THE PATIENT. GAVE ALL THE SCHEDULED MEDICATIONS ORDERED. CALL LIGHT WITHIN REACH.SAFETY MEASURES PLACED.
[2020-01-09] MEDS: GABAPENTIN 300 MG CAP PO SCH (21:54)
[2020-01-09] MEDS: HYDROcodone/APAP 5/325 MG 1 TAB TAB PO PRN (21:54)
[2020-01-09] MEDS ORDERED: DIAZEPAM 5 MG TAB PO PRN ×2 (23:00)
--- NOTE | 2020-01-09 23:30 | NUR ---
PATIENT COMPLAINING OF CHEST PAIN STATED IT FEELS LIKE PRESSURE ON HIS CHEST, 8/10 AND VERBALIZED THAT HE WANTED TO HAVE THE NITRO SL THAT THEY GAVE HIM IN ER. PRN NITRO 0.4MG SL GIVEN ORDERED. BP 120/55, HR-70. SR ON KEYMODULE ASSEMBLY MACHINE TENDER, HR- 70'S. WILL CONTINUE TO MONITOR THE PATIENT.
--- NOTE | 2020-01-09 23:45 | NUR ---
RE ASSESSED THE PATIENT AFTER GIVING THE NTG 0.4 MG SL X1, PER PATIENT HE FEELS BETTER AND PAIN IS GONE AND WANTED TO SLEEP FOR NOW.WILL CONTINUE TO MONITOR. REMAINS SR ON EXECUTIVE SEARCH CONSULTANT, HR- 70'S.
[2020-01-10] VITALS: BP 120/55
[2020-01-10] MEDS ORDERED: GABAPENTIN 100 MG CAP PO SCH
[2020-01-10 00:21] LABS: APPEARANCE,URINE CLOUDY (CLEAR); BILIRUBIN,URINE NEGATIVE (NEGATIVE); BLOOD, URINE NEGATIVE (NEGATIVE); COLOR,URINE YELLOW (YELLOW); LEUKOCYTE ESTERASE ,URINE TRACE (NEGATIVE); NITRITE, URINE POSITIVE (NEGATIVE); PH,URINE 7.5 (5.0-9.0); UGLUCOSE NEGATIVE (NEGATIVE)
[2020-01-10 00:49] LABS: RBC,URINE 0-5 /HPF (0-5)
[2020-01-10 00:51] LABS: BARBITURATE, URINE NEGATIVE ng/ml (NEG <=200); BENZODIAZEPINE, URINE POSITIVE ng/mL (NEG <=200); CANNABINOID, URINE POSITIVE ng/mL (NEG <=50); COCAINE, URINE NEGATIVE ng/mL (NEG <=300); OPIATE, URINE NEGATIVE ng/mL (NEG <=2000); PHENCYCLIDINE SCREEN,URINE NEGATIVE ng/mL (NEG <=25)
--- NOTE | 2020-01-10 02:00 | NUR ---
PT SLEEPING AT THIS TIME. NO S/SX OF DISTRESS NOTED. CALL LIGHT WITHIN REACH.
[2020-01-10] MEDS: HYDROcodone/APAP 5/325 MG 1 TAB TAB PO PRN ×3 (03:32→18:09)
--- NOTE | 2020-01-10 03:33 | NUR ---
PT C/O PAIN ON BILATERAL SHOULDER 10 AND PT ASKED FOR NORCO, GIVEN ORDERED.
[2020-01-10 04:00] VITALS: BP 112/73
[2020-01-10] MEDS: GABAPENTIN 300 MG CAP PO SCH ×3 (04:52→21:51)
[2020-01-10 06:15] LABS: BASOPHILS # (AUTO) 0.1 K/uL (0.00-0.22); BASOPHILS % (AUTO) 0.9 % (0.0-2.0); EOSINOPHILS # (AUTO) 0.2 K/uL (0-0.4); EOSINOPHILS % (AUTO) 2.7 % (0.0-4.0); HEMATOCRIT 44.8 % (36-52); HEMOGLOBIN 15.3 g/dL (12.0-18.0); LYMPHOCYTES # (AUTO) 1.7 K/uL (2.0-11.5); LYMPHOCYTES % (AUTO) 23.6 % (20.5-51.1); MEAN CORPUSCULAR HEMOGLOBIN 32 pg (27-31); MEAN CORPUSCULAR HGB CONC 34 g/dL (33-37); MEAN CORPUSCULAR VOLUME 94.1 fL (80-94); MONOCYTES # (AUTO) 0.6 K/uL (0.8-1.0); MONOCYTES % (AUTO) 7.7 % (1.7-9.3); NEUTROPHILS # (AUTO) 4.8 K/uL (1.8-7.7); NEUTROPHILS % (AUTO) 65.1 % (42.2-75.2); PLATELET COUNT (AUTO) 205 K/uL (140-450); RED BLOOD CELL COUNT(AUTO) 4.76 MIL/uL (4.20-6.10); RED CELL DISTRIBUTION WIDTH 13.8 % (11.6-13.7); WHITE BLOOD COUNT (AUTO) 7.4 K/uL (4.8-10.8)
[2020-01-10 06:16] LABS: CARBON DIOXIDE 29.9 mmol/L (21-32); CREATININE 0.5 mg/dL (0.6-1.3); POTASSIUM 3.9 mmol/L (3.5-5.1)
[2020-01-10 06:19] LABS: MAGNESIUM 1.9 mg/dL (1.8-2.4); PHOSPHORUS 3.4 mg/dL (2.5-4.9)
[2020-01-10 06:20] LABS: CHOL/HDL RATIO 5.2 (1-4.5)
--- NOTE | 2020-01-10 06:41 | NUR ---
PT STABLE. NO ACUTE EVENTS OVERNIGHT. NO S/SX OF DISTRESS NOTED AT THIS TIME. CALL LIGHT WITHIN REACH.WILL ENDORSE THE PT TO THE ONCOMING RN FOR CONTINUITY OF CARE.
--- NOTE | 2020-01-10 07:15 | NUR ---
RECEIVED PT FROM ANGLE BENDER NURSE, PAMELA PEREA, PT IS AWAKE AND LYING ON THE BED WITH SIDE RAILS UP AND CALL LIGHT WITHIN REACH, WHEELCHAIR ON THE BEDSIDE, IV LINE INTACT ON THE LEFT FA G. 20 WITH NS INFUSING AT 60ML/HR, ON ROOM AIR AND NO SIGN OF DISTRESS NOTED, WILL CONTINUE TO MONITOR PT.
[2020-01-10 08:00] VITALS: BP 149/86
[2020-01-10] MEDS: ONDANSETRON 4 MG/2 ML VIAL IM/IVP PRN (09:00)
[2020-01-10] MEDS: BISACODYL 10 MG SUPP RC SCH (09:00)
[2020-01-10] MEDS: tiZANidine 4 MG TAB PO SCH ×4 (09:09→21:51)
[2020-01-10] MEDS: BACLOFEN 10 MG TAB PO SCH ×4 (09:09→21:50)
[2020-01-10] MEDS: DOCUSATE SODIUM 100 MG GELCAP PO SCH ×2 (09:09→21:50)
[2020-01-10] MEDS: ASPIRIN 81 MG TAB.CHEW PO SCH (09:10)
[2020-01-10] MEDS: HYDROCORTISONE 2.5% OINT 30 GM TUBE TP SCH (09:12)
--- NOTE | 2020-01-10 09:16 | NUR ---
PATIENT HAS BEEN SCREENED AND CATEGORIZED MODERATE NUTRITION RISK. PATIENT WILL BE SEEN WITHIN 3-5 DAYS OF ADMISSION. 01/12/20 01/14/[address]
--- NOTE | 2020-01-10 09:38 | NUR ---
MEDS GIVEN. PT TOLERATED MED PASS WELL.
[2020-01-10 12:00] VITALS: BP 104/74
--- NOTE | 2020-01-10 12:30 | NUR ---
PT WAS GIVEN THE SCHEDULED MEDICATIONS NOW, WILL MONITOR PT.
[2020-01-10] MEDS: NACL 0.9% 1,000 ML IV SCH (13:04)
[2020-01-10] MEDS ORDERED: REGADENOSON 0.4 MG/5 ML SYR IV SCH (13:45)
[2020-01-10 16:00] VITALS: BP 124/69
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
--- NOTE | 2020-01-10 17:05 | NUR ---
DR. KUMARI SAID TO GIVE THE PT THE FOOD THAT THE SON WILL BE BRINGING.
--- NOTE | 2020-01-10 17:51 | NUR ---
PT WAS GIVEN THE SCHEDULED ORAL MEDICATIONS NOW AND TOLERATED, WILL MONITOR PT.
--- NOTE | 2020-01-10 18:20 | NUR ---
PT IS RESTING IN BED, EYES OPEN. R/R EVEN AND UNLABORED. SYMMETRICAL RISE AND FALL OF CHEST. PRN MEDS GIVEN. WILL CONTINUE MONITOR.
--- NOTE | 2020-01-10 19:09 | NUR ---
PT IS RESTING IN BED. NO SIGNS OF DISTRESS. VS STABLE. FLUIDS RUNNING. TRANSFER OF CARE TO NAVIN ZAYAS.
--- NOTE | 2020-01-10 19:15 | NUR ---
ENDORSED PT TO PORT CDL A DRIVER NURSECHANA FOR CONTINUITY OF CARE, PT IS STABLE AT THIS TIME.
--- NOTE | 2020-01-10 19:15 | NUR ---
RECEIVED PT AAOX4 , NID - O2 SAT WNL , DENIES ANY PAIN AT THIS TIME. IV SITE INTACT AND PATENT . ON TELE MONITOR . PARAPLEGIC , ON SELF CATHETERIZING URINE . C/O NO BM FOR 3 DAYS - WILL REFER TO BRANDI. SAFETY MEASURES IN PLACE - CALL LIGHT WITHIN REACH . PLAN OF CARE DISCUSSED AND VERBALIZE UNDERSTANDING . WILL CONT. TO MONITOR.
[2020-01-10 20:00] VITALS: BP 119/74
[2020-01-10] MEDS: SIMVASTATIN 20 MG TAB PO SCH (21:52)
[2020-01-10] MEDS ORDERED: BISACODYL 10 MG SUPP RC ONE (22:15)
[2020-01-11] VITALS: BP 130/73
--- NOTE | 2020-01-11 | NUR ---
MADE ROUNDS , NO S/SX OF ACUTE DISTRESS NOTED AT THIS TIME . WILL CONT. TO MONITOR.
--- NOTE | 2020-01-11 00:33 | NUR ---
DR MACIAS SAID NO NEED TO PUT PT. ON NPO POST MN - CHARGE NURSE DERRICK INFORM .
[2020-01-11] MEDS: HYDROcodone/APAP 5/325 MG 1 TAB TAB PO PRN ×3 (01:43→19:58)
[2020-01-11] MEDS: ONDANSETRON 4 MG/2 ML VIAL IM/IVP PRN ×3 (01:43→21:57)
--- NOTE | 2020-01-11 02:00 | NUR ---
SLEEPING - CHEST RISE AND FALL EQUALLY - CALL LIGHT WITHIN REACH
[2020-01-11] MEDS: NACL 0.9% 1,000 ML IV SCH (03:16)
[2020-01-11 04:00] VITALS: BP 135/83
--- NOTE | 2020-01-11 04:00 | NUR ---
ENDORSED FOR CONTINUITY OF CARE - PT - STABLE.
--- NOTE | 2020-01-11 04:01 | NUR ---
RECD. RESTING IN BED, AWAKE, A/OX4. RESPIRATION EVEN AND UNLABORED. IV OF NS AT 60 ML/HR INFUSING LEFT FOREARM G20. AWARE OF PLANNED LEXISCAN TEST IN AM, NO COFFEE FOR 8 HOURS BEFORE THE TEST. DENIES PAIN 0/10.
[2020-01-11] MEDS: ACETAMINOPHEN 325 MG TAB PO PRN (04:40)
[2020-01-11] MEDS: GABAPENTIN 300 MG CAP PO SCH ×3 (04:40→20:53)
[2020-01-11 06:05] LABS: BASOPHILS # (AUTO) 0.1 K/uL (0.00-0.22); BASOPHILS % (AUTO) 0.8 % (0.0-2.0); EOSINOPHILS # (AUTO) 0.2 K/uL (0-0.4); EOSINOPHILS % (AUTO) 1.7 % (0.0-4.0); HEMATOCRIT 45.8 % (36-52); HEMOGLOBIN 15.7 g/dL (12.0-18.0); LYMPHOCYTES # (AUTO) 1.7 K/uL (2.0-11.5); LYMPHOCYTES % (AUTO) 19.5 % (20.5-51.1); MEAN CORPUSCULAR HEMOGLOBIN 32 pg (27-31); MEAN CORPUSCULAR HGB CONC 34 g/dL (33-37); MEAN CORPUSCULAR VOLUME 93.2 fL (80-94); MONOCYTES # (AUTO) 0.7 K/uL (0.8-1.0); MONOCYTES % (AUTO) 8.3 % (1.7-9.3); NEUTROPHILS # (AUTO) 6.2 K/uL (1.8-7.7); NEUTROPHILS % (AUTO) 69.7 % (42.2-75.2); PLATELET COUNT (AUTO) 197 K/uL (140-450); RED BLOOD CELL COUNT(AUTO) 4.91 MIL/uL (4.20-6.10); RED CELL DISTRIBUTION WIDTH 13.9 % (11.6-13.7); WHITE BLOOD COUNT (AUTO) 8.9 K/uL (4.8-10.8)
[2020-01-11 06:26] LABS: ANION GAP 12.6 (8-16); CARBON DIOXIDE 27.8 mmol/L (21-32); CREATININE 0.4 mg/dL (0.6-1.3); POTASSIUM 3.4 mmol/L (3.5-5.1)
--- NOTE | 2020-01-11 06:30 | NUR ---
STILL SLEEPING COMFORTABLY IN BED, WILL ENDORSE TO AM SHIFT NURSE FOR CONTINUITY OF CARE.
[2020-01-11 06:48] LABS: MAGNESIUM 1.7 mg/dL (1.8-2.4); PHOSPHORUS 2.6 mg/dL (2.5-4.9)
--- NOTE | 2020-01-11 07:20 | NUR ---
RECEIVED PATIENT FROM NIGHT NURSE. PATIENT IS AWAKE AND ALERT. RESP EVEN AND UNLABORED ON ROOM AIR. LFA 20 NOTED WITH NS 60ML/HR. PLAN OF CARE DISCUSSED WITH PATIENT. PATIENT VERBALIZED UNDERSTANDING. BED IN LOW POSITION, CALL LIGHT IN PLACE. WILL CONTINUE TO MONITOR.
[2020-01-11 08:00] VITALS: BP 146/91
[2020-01-11] MEDS ORDERED: SODIUM PHOSPHATE 118 ML ENEM RC SCH (08:30)
[2020-01-11] MEDS ORDERED: BISACODYL 10 MG SUPP RC SCH (09:00)
[2020-01-11] MEDS: DOCUSATE SODIUM 100 MG GELCAP PO SCH ×2 (09:42→21:04)
[2020-01-11] MEDS: tiZANidine 4 MG TAB PO SCH ×4 (09:42→20:53)
[2020-01-11] MEDS: ASPIRIN 81 MG TAB.CHEW PO SCH (09:42)
[2020-01-11] MEDS: BACLOFEN 10 MG TAB PO SCH ×4 (09:42→20:52)
[2020-01-11] MEDS: BISACODYL 10 MG SUPP RC SCH (09:43)
--- NOTE | 2020-01-11 09:50 | NUR ---
MORNING ROUTINE MEDICATIONS GIVEN. PATIENT TOLERATED WELL. PATIENT C/O NAUSEA AND WAS GIVEN ZOFRAN IVP. BED IN LOW POSITION. CALL LIGHT IN PLACE. DULCOLAX GIVEN, FLEET ENEMA WILL BE GIVEN IF DULCOLAX NOT EFFECTIVE. PATIENT VERBALIZED UNDERSTANDING. WILL CONTINUE TO MONITOR.
[2020-01-11] MEDS: HYDROCORTISONE 2.5% OINT 30 GM TUBE TP SCH (09:59)
--- NOTE | 2020-01-11 11:55 | NUR ---
INTERNET SALES CONSULTANT NOTE: Basic Screen: Yes High Risk DC Screen [place]: JO-ANN Redmond Relationship: SON Pre-Admission Living Arrangements: Lives Alone Prior ADL Needs Assistance Current Home Health Name/Tel: [facility] Current DME/02 Name/Tel: WHEELCHAIR Current Hospice Name/Tel: N/A Current Dialysis Name/Tel: N/A Healthcare Decision Maker: Patient Advance Directive No Physician Orders for Life Sustaining Treatment Form No Patient/Family Have Educational Needs No Information Taught: Advance Directive Community Resources Person Taught: Patient Participation Level: Refused Discipline: Case Mgt/Social Svcs Tentative Discharge Plan/Destination: No Needs Identified Will require assistance post discharge: No Referred to Industrial Maintenance Instructor: No Tentative Discharge Plan Summary: PATIENT IS A 54-YEAR-OLD MALE ADMITTED FOR CHEST PAIN. PATIENT HAS PMHX OF PARAPLEGIA. PATIENT WAS ADMITTED FROM HOME WHERE HE LIVES BY HIMSELF. SW MET WITH PATIENT AT BEDSIDE TO VERIFY DEMOGRAPHICS. PER PATIENT, HE RECEIVES DAILY HOME HEALTH VISITS. PATIENT STATED THAT THEY ASSIST WITH ADLS 6-8 HOURS A DAY. PATIENT REPORTED THAT [employer] GOES TO PATIENT'S RESIDENCE TWICE A WEEK FOR THERAPY AND DAILY FOR SHOWERS AND ASSISTANCE WITH ALL OTHER ADLS. PATIENT REPORTED NO HISTORY OF MENTAL HEALTH OR SUBSTANCE ABUSE. PATIENT REFUSED IHSS RESOURCES AND STATED ALL NEEDS ARE BEING MET. TENTATIVE DISCHARGE PLAN IS FOR PATIENT TO RETURN HOME. NO FURTHER NEEDS IDENTIFIED. Signature: LIAM PEREZ Date: Jan 11, 2020 Time: 11:54
[2020-01-11 12:00] VITALS: BP 148/89
--- NOTE | 2020-01-11 14:25 | NUR ---
PATIENT C/O PAIN TO RIGHT SHOULDER ON SCALE OF 4/10. GIVEN NORCO PO PRN ORDERED. PATIENT IS ABLE TO PERFORM MOST FUNCTIONS INDEPENDENTLY, REQUIRING VERY MINIMAL ASSISTANCE FROM STAFF. PATIENT IS ABLE TO MAKE NEEDS KNOWN. WILL CONTINUE TO MONITOR.
[2020-01-11] MEDS ORDERED: MAG SULF 2000 MG/WATER PREMIX 50 ML IV SCH (15:00)
[2020-01-11] MEDS ORDERED: POTASSIUM CHLORIDE 10 MEQ TABER PO SCH (15:00)
--- NOTE | 2020-01-11 15:30 | NUR ---
PAIN REDUCED TO EFFECTIVE TOLERABLE LEVEL. PATIENT IS RESTING COMFORTABLY IN BED. RESP EVEN AND UNLABORED.
[2020-01-11 16:00] VITALS: BP 142/82
--- NOTE | 2020-01-11 17:20 | NUR ---
LEXISCAN PROCEDURE SCHEDULED FOR TOMORROW AT [address] GILES. PATIENT IS NOT TO HAVE ANY CAFFEINE PRIOR TO PROCEDURE. PATIENT IS MADE AWARE AND VERBALIZED UNDERSTANDING.
--- NOTE | 2020-01-11 19:20 | NUR ---
RECEIVED REPORT FROM AM SHIFT NURSE, PATIENT IS ALERT AND ORIENTED X4, TELE MONITOR IN PLACE. PATIENT IS HAS WHEELCHAIR BEDSIDE. ROOM AIR WITH O2 SAT AT 96%. NO S/S OF DISTRESS NOTED. IV SITE TO LEFT FOREARM INTACT WITH FLUIDS INFUSING AT 10ML/HR. BED IN LOW POSITION AND CALL LIGHT WITHIN REACH. WILL CONTINUE TO MONITOR.
--- NOTE | 2020-01-11 19:20 | NUR ---
ENDORSED PATIENT TO NIGHT NURSE. PATIENT IN STABLE CONDITION.
[2020-01-11 20:00] VITALS: BP 134/93
[2020-01-11] MEDS ORDERED: METOPROLOL 50 MG TAB PO SCH (21:00)
--- NOTE | 2020-01-11 21:00 | NUR ---
MEDICATION GIVEN ORDERED. EDUCATION GIVEN ON MEDICATION AND PATIENT VERBALIZED UNDERSTANDING. TOLERATED WELL. WILL CONTINUE TO MONITOR PATIENT ORDERED. SITTING UP IN BED, CONTINUES ON ROOM AIR WITHOUT COMPLICATIONS.
[2020-01-11] MEDS: SIMVASTATIN 20 MG TAB PO SCH (21:03)
--- NOTE | 2020-01-11 21:50 | NUR ---
IV SITE CHANGED TO LEFT FOREARM WITH 20 GAUGE, SALINE FLUSH WITHOUT COMPLICATIONS, PREVIOUS SITE WAS LEAKING.
--- NOTE | 2020-01-11 22:00 | NUR ---
PATIENT REQUESTED PRN FOR NAUSEA, PATIENT MEDICATED PER ORDERS. WILL CONTINUE TO MONITOR. HE IS NOW SITTING UP IN BED.
--- NOTE | 2020-01-11 22:50 | NUR ---
SPOKE TO DR HEADLEY REGARDING NPO ORDER FOR PATIENT AFTER MIDNIGHT FOR LESLIE SCAN SCHEDULED FOR 01/11 @ 830. STATED THAT PATIENT JUST NEEDS TO BE FREE OF CAFFEINE INTAKE PRIOR TO TEST, NO NPO ORDER PLACED.
--- NOTE | 2020-01-11 23:06 | NUR ---
SPOKE TO RESIDENT DR MACIAS AND REQUESTED PRN SLEEP MEDICATION PER PATIENT REQUEST
[2020-01-11] MEDS ORDERED: MELATONIN 3 MG TAB PO SCH (23:55)
[2020-01-12] VITALS: BP 114/72
--- NOTE | 2020-01-12 00:42 | NUR ---
PATIENT SLEEPING AT THIS TIME. RESPIRATIONS EVEN AND UNLABORED. WILL CONTINUE TO MONITOR.
--- NOTE | 2020-01-12 02:32 | NUR ---
ROUNDS DONE, PATIENT SLEEPING, NO S/S OF DISTRESS NOTED, RESPIRATIONS EVEN AND UNLABORED. WILL CONTINUE TO MONITOR
[2020-01-12] MEDS: NACL 0.9% 1,000 ML IV SCH (03:16)
[2020-01-12 04:00] VITALS: BP 139/91
--- NOTE | 2020-01-12 04:29 | NUR ---
PATIENT CONTINUES TO REST, DENIES PAIN AT THIS TIME. NO S/S OF DISTRESS NOTED. WILL CONTINUE TO MONITOR.
[2020-01-12] MEDS: GABAPENTIN 300 MG CAP PO SCH (04:56)
[2020-01-12 06:17] LABS: BASOPHILS # (AUTO) 0.1 K/uL (0.00-0.22); EOSINOPHILS # (AUTO) 0.2 K/uL (0-0.4); EOSINOPHILS % (AUTO) 2.8 % (0.0-4.0); HEMATOCRIT 47.2 % (36-52); HEMOGLOBIN 16.1 g/dL (12.0-18.0); LYMPHOCYTES # (AUTO) 1.9 K/uL (2.0-11.5); LYMPHOCYTES % (AUTO) 28.7 % (20.5-51.1); MEAN CORPUSCULAR HEMOGLOBIN 32 pg (27-31); MEAN CORPUSCULAR HGB CONC 34 g/dL (33-37); MEAN CORPUSCULAR VOLUME 94.2 fL (80-94); MONOCYTES # (AUTO) 0.6 K/uL (0.8-1.0); MONOCYTES % (AUTO) 8.7 % (1.7-9.3); NEUTROPHILS % (AUTO) 58.8 % (42.2-75.2); PLATELET COUNT (AUTO) 196 K/uL (140-450); RED BLOOD CELL COUNT(AUTO) 5.01 MIL/uL (4.20-6.10); RED CELL DISTRIBUTION WIDTH 13.6 % (11.6-13.7); WHITE BLOOD COUNT (AUTO) 6.8 K/uL (4.8-10.8)
--- NOTE | 2020-01-12 06:51 | NUR ---
[facility] MED PATIENT ACCESS REPRESENTATIVE IS AT BEDSIDE TO PREP PATIENT FOR LEXISCAN.
[2020-01-12 06:55] LABS: ANION GAP 10.7 (8-16); CREATININE 0.4 mg/dL (0.6-1.3); POTASSIUM 3.7 mmol/L (3.5-5.1)
--- NOTE | 2020-01-12 07:21 | NUR ---
REPORT GIVEN TO AM SHIFT NURSE, PATIENT IN STABLE CONDITION.
--- NOTE | 2020-01-12 07:23 | NUR ---
RECEIVED REP[ORT FROM NIGHT NURSE PT IS AAOX4 ON ROOM AIR,, SKIN INTACT AND IV SITES INTACT AND P[ATENT, SAFETY MEASURES IN PLACE, CALL LIGHT WITHIN REACH. WILL CONTINUE TO MONITOR.
--- NOTE | 2020-01-12 07:46 | NUR ---
PT IS OUT OF HIS ROOM AT THIS TIME, SCHEDULED FOR LEXISCAN STRESS TEST, PT IS STABLE.
[2020-01-12 08:00] VITALS: BP 143/91
[2020-01-12] MEDS: DOCUSATE SODIUM 100 MG GELCAP PO SCH (09:00)
[2020-01-12 09:34] LABS: MAGNESIUM 1.9 mg/dL (1.8-2.4)
--- NOTE | 2020-01-12 10:38 | NUR ---
PT BACK IN HIS ROOM AT THIS TIME PT IS STABLE AND AWAKE. WILL CONTINUE TO MONITOR
--- NOTE | 2020-01-12 11:00 | NUR ---
MEDICATIONS DUE GIVEN AT THIS TIME.GAVE MEDICATION LATE BECAUSE PT WENT FOR A LEXISCAN STRESS TEST. WILL CONTINUE TO MONITOR
[2020-01-12] MEDS: tiZANidine 4 MG TAB PO SCH (11:15)
[2020-01-12] MEDS: ASPIRIN 81 MG TAB.CHEW PO SCH (11:15)
[2020-01-12] MEDS: BACLOFEN 10 MG TAB PO SCH (11:15)
[2020-01-12] MEDS: BISACODYL 10 MG SUPP RC SCH (11:16)
[2020-01-12] MEDS: HYDROCORTISONE 2.5% OINT 30 GM TUBE TP SCH (11:16)
[2020-01-12] MEDS: HYDROcodone/APAP 5/325 MG 1 TAB TAB PO PRN (11:30)
[2020-01-12] MEDS: ONDANSETRON 4 MG/2 ML VIAL IM/IVP PRN (11:30)
[2020-01-12] MEDS ORDERED: CEPH-1019 PO (13:35)
[2020-01-12] MEDS ORDERED: NITR0.4T1 SL (13:35)
--- NOTE | 2020-01-12 15:00 | NUR ---
DISCHARGED INSTRUCTIONS GIVEN TO PAT AT THE BEDSIDE. MEDICATION REGIMENS, SIDE EFFECT AND DOSAGE, ENCOURAGED PT TO SEEK MEDICAL HELP IN CASE OF EMERGENCIES, IV SITES INTACT AND COMPLETE NO BLEEDING ON THE IV SITES, REMOVED TELE MONITOR AND RETURNED TO LINE UP EXAMINER. REMOVED IV BANDS, CHANGED PT TO HIS HOME CLOTHES. ANSWERED ALL PT QUESTIONS AND VERBALIZES UNDERSTANDING. PT IS BEING DISCHARGED HOME ACCOMPANIED BY HIS SON. ESCORTED PT TO FRONT LOBBY. PT IS STABLE.
== END 2020-01-12 15:00 | disposition home health service (06) | DRG 203 ==
LOC: MED 15:16 → MTU 17:56 → OBSVTOIN 01-10 18:27
PROVIDERS: ADMIT General Practice; ATTEND General Practice
DX: M94.0 Chondrocostal junction syndrome [Tietze] (principal); G82.20 Paraplegia, unspecified; E83.42 Hypomagnesemia; N39.0 Urinary tract infection, site not specified; I20.9 Angina pectoris, unspecified; M62.838 Other muscle spasm; E87.6 Hypokalemia; G47.00 Insomnia, unspecified; G62.9 Polyneuropathy, unspecified; F12.90 Cannabis use, unspecified, uncomplicated; F41.9 Anxiety disorder, unspecified; K21.9 Gastro-esophageal reflux disease without esophagitis; F31.9 Bipolar disorder, unspecified; E78.5 Hyperlipidemia, unspecified; Z79.1 Long term (current) use of non-steroidal anti-inflammatories (NSAID); Z79.899 Other long term (current) drug therapy
CPT/HCPCS: 99285; G0378; 36415; 71045; 80048; 80053; 80305; 81001; 83036; 83735; 83880; 84100; 84443; 84484; 85025; 85610; 85730; 87081; 87086; 87186; 93005; 93017; A9500; A9502; J0696; J1644; J2405; J2785; J3475; J7030; J7060; Q0092

== ENCOUNTER 2020-06-21 16:06 | Emergency (ER) | payer MEDICAID ==
[~2020-06-21] VITALS: Ht 167.6 cm; Wt 63.5 kg
[~2020-06-21 16:06] MED LIST changes: -ACET-787 PO; +CEPH-1019 PO; -DETLA4 PO; +HYDR-5191 PO; -LACT1.4C PO; -MSCON15 PO; +NITR0.4T1 SL; -NITR100C7 PO; -SILV-22 TP; -SUCR1TAB35 PO; -SULF-59 PO; -TEMA15CA24 PO
[2020-06-21 16:14] VITALS: BP 151/98
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
--- NOTE | 2020-06-21 16:26 | NUR ---
W/C TO BED 12
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
[2020-06-21] MEDS ORDERED: NACL 0.9% 1,000 ML IV ONE (17:05)
[2020-06-21] MEDS ORDERED: ONDANSETRON 4 MG/2 ML VIAL IVP ONE (17:05)
[2020-06-21] MEDS ORDERED: KETOROLAC 30 MG/ML VIAL IVP ONE (17:05)
[2020-06-21] MEDS ORDERED: DICYCLOMINE HCL LIQUID 20 MG, ALUMINUM HYD/MAG/SIMETHICONE 30 ML, LIDOCAINE VISCOUS 2% ... PO ONE ×3 (17:15)
[2020-06-21] MEDS ORDERED: ALUMINUM HYD/MAG/SIMETHICONE 30 ML UDC ONE (17:25)
[2020-06-21] MEDS ORDERED: LIDOCAINE VISCOUS 2% 20 ML UDC ONE (17:25)
[2020-06-21] MEDS ORDERED: DICYCLOMINE HCL LIQUID 10 MG/5 ML UDC ONE (17:26)
--- NOTE | 2020-06-21 17:29 | NUR ---
20G IV placed to right AC, blood drawn at this time and given to phleb
--- NOTE | 2020-06-21 17:31 | NUR ---
PT MOVED TO BED 9.
[2020-06-21 17:46] LABS: BASOPHILS # (AUTO) 0.1 K/uL (0.00-0.22); BASOPHILS % (AUTO) 0.9 % (0.0-2.0); EOSINOPHILS # (AUTO) 0.3 K/uL (0-0.4); EOSINOPHILS % (AUTO) 2.7 % (0.0-4.0); HEMATOCRIT 48.6 % (36-52); HEMOGLOBIN 16.9 g/dL (12.0-18.0); LYMPHOCYTES # (AUTO) 1.5 K/uL (2.0-11.5); LYMPHOCYTES % (AUTO) 15.1 % (20.5-51.1); MEAN CORPUSCULAR HEMOGLOBIN 31 pg (27-31); MEAN CORPUSCULAR HGB CONC 35 g/dL (33-37); MEAN CORPUSCULAR VOLUME 88.9 fL (80-94); MONOCYTES # (AUTO) 1.2 K/uL (0.8-1.0); MONOCYTES % (AUTO) 12.1 % (1.7-9.3); NEUTROPHILS # (AUTO) 6.8 K/uL (1.8-7.7); NEUTROPHILS % (AUTO) 69.2 % (42.2-75.2); PLATELET COUNT (AUTO) 233 K/uL (140-450); RED BLOOD CELL COUNT(AUTO) 5.47 MIL/uL (4.20-6.10); RED CELL DISTRIBUTION WIDTH 14.5 % (11.6-13.7); WHITE BLOOD COUNT (AUTO) 9.8 K/uL (4.8-10.8)
[2020-06-21 18:08] LABS: ALBUMIN 3.8 g/dL (3.4-5.0); ANION GAP 12.3 (8-16); CARBON DIOXIDE 29.2 mmol/L (21-32); CREATININE 0.5 mg/dL (0.6-1.3); POTASSIUM 3.5 mmol/L (3.5-5.1); TOTAL BILIRUBIN 0.6 mg/dL (0.0-1.0)
--- NOTE | 2020-06-21 18:14 | NUR ---
CADEN DACOSTA/BRETT and JOHN collected and walked to lab.
--- NOTE | 2020-06-21 18:35 | NUR ---
Pt resting, eyes closed, visual rise and fall of chest. VSS. Will continue to monitor.
--- NOTE | 2020-06-21 19:11 | NUR ---
Report given to Mary HOLDEN, transfered care at this time.
--- NOTE | 2020-06-21 19:16 | NUR ---
report received from betsy pham
[2020-06-21 19:38] VITALS: BP 139/87
--- NOTE | 2020-06-21 19:40 | NUR ---
Patient discharged with v/s stable. Written and verbal after care instructions given and explained. Patient alert, oriented and verbalized understanding of instructions. Wheel Chair Assisted with to home. All questions addressed prior to discharge. ID band removed. Patient advised to follow up with PMD. Rx of CIPRO AND PREVACID given. Patient educated on indication of medication including possible reaction and side effects. Opportunity to ask questions provided and answered.
[2020-06-21 21:12] LABS: APPEARANCE,URINE CLOUDY (CLEAR); BILIRUBIN,URINE 1+ (NEGATIVE); BLOOD, URINE 1+ (NEGATIVE); COLOR,URINE DARK YELLOW (YELLOW); LEUKOCYTE ESTERASE ,URINE TRACE (NEGATIVE); NITRITE, URINE POSITIVE (NEGATIVE); UGLUCOSE NEGATIVE (NEGATIVE)
[2020-06-21 22:30] LABS: RBC,URINE 11-20 (MOD) /HPF (0-5)
--- NOTE | 2020-06-24 13:51 | NUR ---
Spoke to patient regarding returning to ER for IV antibiotic treatment due to lab results. Pt states he will return today
--- NOTE | 2020-06-24 15:46 | NUR ---
Negative covid result received from lab
== END 2020-06-21 19:40 | disposition home or self-care (01) ==
LOC: MED 16:06
DX: N39.0 Urinary tract infection, site not specified (principal); B34.9 Viral infection, unspecified; K21.9 Gastro-esophageal reflux disease without esophagitis; G82.20 Paraplegia, unspecified; Z79.899 Other long term (current) drug therapy; Z98.890 Other specified postprocedural states; Z20.828 Contact with and (suspected) exposure to other viral communicable diseases
CPT/HCPCS: 80053; 81001; 85025; 87081; 87086; 96361; 96374; 96375; 99284; J1885; J2405; U0003; J7030

== ENCOUNTER 2020-06-24 20:10 | Observation (INO) | payer MEDICAID, SELFPAY ==
[~2020-06-24] VITALS: Ht 167.6 cm; Wt 63.5 kg
[2020-06-24 20:18] VITALS: BP 123/82
--- NOTE | 2020-06-24 20:20 | NUR ---
TO LOBBY A/W BED VIA W/C
--- NOTE | 2020-06-24 21:04 | NUR ---
PT TAKEN TO BED #2
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
--- NOTE | 2020-06-24 21:16 | NUR ---
ERMD AT BEDSIDE EVALUATING PT.
[2020-06-24] MEDS ORDERED: ONDANSETRON 4 MG/2 ML VIAL IVP ONE (21:25)
[2020-06-24] MEDS ORDERED: NACL 0.9% 1,000 ML IV ONE (21:25)
--- NOTE | 2020-06-24 21:30 | NUR ---
LAB AT BEDSIDE.
[2020-06-24] MEDS ORDERED: cefTRIAXone 1,000 MG VIAL ONE (21:43)
--- NOTE | 2020-06-24 21:45 | NUR ---
20 G IV SITE ESTABLISHED TO R AC. SITE WAS PATENT, FLUSHED WITH 10ML OF 0.9% NS. NO INFILTRATION OR PAIN.
[2020-06-24 21:49] LABS: BASOPHILS # (AUTO) 0.1 K/uL (0.00-0.22); BASOPHILS % (AUTO) 0.8 % (0.0-2.0); EOSINOPHILS # (AUTO) 0.3 K/uL (0-0.4); EOSINOPHILS % (AUTO) 2.2 % (0.0-4.0); HEMATOCRIT 46.5 % (36-52); HEMOGLOBIN 15.8 g/dL (12.0-18.0); LYMPHOCYTES # (AUTO) 1.8 K/uL (2.0-11.5); LYMPHOCYTES % (AUTO) 14.5 % (20.5-51.1); MEAN CORPUSCULAR HEMOGLOBIN 31 pg (27-31); MEAN CORPUSCULAR HGB CONC 34 g/dL (33-37); MEAN CORPUSCULAR VOLUME 89.5 fL (80-94); MONOCYTES # (AUTO) 1.2 K/uL (0.8-1.0); MONOCYTES % (AUTO) 9.6 % (1.7-9.3); NEUTROPHILS # (AUTO) 8.8 K/uL (1.8-7.7); NEUTROPHILS % (AUTO) 72.9 % (42.2-75.2); PLATELET COUNT (AUTO) 265 K/uL (140-450); RED BLOOD CELL COUNT(AUTO) 5.19 MIL/uL (4.20-6.10); RED CELL DISTRIBUTION WIDTH 14.7 % (11.6-13.7); WHITE BLOOD COUNT (AUTO) 12.1 K/uL (4.8-10.8)
--- NOTE | 2020-06-24 22:00 | NUR ---
VIVIANE ANTIGEN SWAB COLLECTED AND WALKED TO LAB.
--- NOTE | 2020-06-24 22:17 | NUR ---
SPOKE WITH MARGOT FROM PT'S INSURANCE AND PROVIDED UPDATE REGARDING PT STATUS.
[2020-06-24 22:18] LABS: ALBUMIN 3.6 g/dL (3.4-5.0); ANION GAP 12.2 (8-16); CARBON DIOXIDE 30.7 mmol/L (21-32); CREATININE 0.5 mg/dL (0.6-1.3); POTASSIUM 3.9 mmol/L (3.5-5.1); TOTAL BILIRUBIN 0.7 mg/dL (0.0-1.0)
[2020-06-24] MEDS ORDERED: DIT5 PO (23:30)
--- NOTE | 2020-06-24 23:45 | NUR ---
PT REPORTED SELF CATHERIZATION TO VOID. PT OBSERVED WITH 200 ML OF CLOUDY YELLOW URINE NO FOUL ODOR.
[2020-06-25] MEDS ORDERED: HYDROcodone/APAP 10/325 MG 1 TAB TAB PO PRN (00:45)
--- NOTE | 2020-06-25 00:45 | NUR ---
PT C/O 03/11 NECK AND BACK PAIN. REPOSITIONED PT FOR CONFORT BUT INEFFECTIVE DR. DALEY NOTIFIED AND GAVE NEW PRN ORDER FOR NORCO FOR PAIN.
[2020-06-25] MEDS ORDERED: HYDROcodone/APAP 10/325 MG 1 TAB TAB ONE (00:49)
--- NOTE | 2020-06-25 02:30 | NUR ---
PT HAS C/O ACID REFLUX. DR. DALEY NOTIFIED AND GAVE NEW ORDERS FOR PROTONIX 40MG TO BE GIVEN DAILY PO.
--- NOTE | 2020-06-25 02:35 | NUR ---
PATIENT AWAKE LAYING IN BED. IN NO ACUTE DISTRESS NOTED. RESPIRATIONS ARE EVEN AND UNLABORED EVIDENCE BY RISE & FALL OF CHEST WALL. PROVIDED PT WITH WARM BLANKETS FOR CONFORT.
[2020-06-25] MEDS ORDERED: PANTOPRAZOLE 40 MG TABEC PO ONE (02:36)
[2020-06-25] MEDS ORDERED: PANTOPRAZOLE 40 MG TABEC PO SCH (02:40)
--- NOTE | 2020-06-25 04:15 | NUR ---
PT LAYING IN BED WITH EYES CLOSED IN NO ACUTE DISTRESS NOTED, VSS. BED LOCKED AND IN LOWEST POSITION.
--- NOTE | 2020-06-25 05:09 | NUR ---
PT WAS RE-POSITION FOR COMFORT. HOB ADJUSTED TO DESIRED HEIGHT. IN NO ACUTE DISTRESS NOTED BREATHING EVEN AND UNLABORED EVIDENCE BY RISE AND FALL OF CHEST WALL. VSS. BED LOCKED AND PLACED IN LOWEST POSITION.
--- NOTE | 2020-06-25 06:50 | NUR ---
PT LAYING IN BED IN NO ACUTE DISTRESS NOTED. REPIRATIONS ARE EVEN AND UNLABORED.
--- NOTE | 2020-06-25 07:13 | NUR ---
REPORT GIVEN TO MAMADOU HOLDEN FOR CONTINUITY OF CARE.
--- NOTE | 2020-06-25 07:17 | NUR ---
Report received from NAVIN Pickens associate veterinarian for continuity of care
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
--- NOTE | 2020-06-25 07:38 | NUR ---
Patient has equipment and is poised to perform straight cath on self @ this time
[2020-06-25] MEDS ORDERED: ZOLPIDEM 5 MG TAB PO PRN (07:55)
[2020-06-25] MEDS ORDERED: DOCUSATE SODIUM 100 MG GELCAP PO PRN (07:55)
[2020-06-25] MEDS ORDERED: POTASSIUM CHLORIDE 10 MEQ TABER PO PRN (07:55)
[2020-06-25] MEDS ORDERED: guaiFENesin DM 200/20 MG-10 ML 10 ML UDC PO PRN (07:55)
[2020-06-25] MEDS ORDERED: HYDROcodone/APAP 7.5/325 MG 1 TAB PO PRN (07:55)
--- NOTE | 2020-06-25 08:01 | NUR ---
Patient c/o "acid reflux". Asked if he received to Protonix last night. Stated yes but "that it didn't do anything". I need something to coat this, I need Maalox or something. I was awake all night from this acid in my throat.
--- NOTE | 2020-06-25 08:02 | NUR ---
Attempted to call NAVIN Echevarria to give report for 108-A, RN stated patient wasn't going to that room, would call me back.
--- NOTE | 2020-06-25 08:16 | NUR ---
Detailed report given to NAVIN Fam for room 105-B. Questions answered, orders and meds reviewed. New orders written by admitting MD cifuentesed to yeimy HOLDEN
[2020-06-25] MEDS ORDERED: ALUMINUM HYD/MAG/SIMETHICONE 30 ML UDC ONE (08:25)
--- NOTE | 2020-06-25 08:25 | NUR ---
[facility] with Caesar, MARGARITA, all belongings taken with patient
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
[2020-06-25 09:38] LABS: CHOL/HDL RATIO 4.3 (1-4.5); FREE T4 (FREE THYROXINE) 1.55 ng/dL (0.76-1.46); MAGNESIUM 1.6 mg/dL (1.8-2.4); PHOSPHORUS 2.6 mg/dL (2.5-4.9); THYROID STIMULATING HORMONE 0.99 uIU/mL (0.34-3.74)
[2020-06-25] MEDS: PANTOPRAZOLE 40 MG TABEC PO SCH (09:38)
[2020-06-25] MEDS: ONDANSETRON 4 MG/2 ML VIAL IM/IVP PRN (09:41)
[2020-06-25] MEDS: NACL 0.9% 1,000 ML IV SCH (09:41)
--- NOTE | 2020-06-25 09:41 | NUR ---
IVF STARTED AND INFUSING WELL. WILL CONTINUE TO MONITOR.
[2020-06-25 09:49] LABS: PROTHROMBIN TIME 10.3 secs (10.8-13.4)
[2020-06-25] MEDS: ACETAMINOPHEN 325 MG TAB PO PRN (12:00)
--- NOTE | 2020-06-25 12:58 | NUR ---
PATIENT BACK FROM CT, IN STABLE CONDITION.
[2020-06-25] MEDS ORDERED: DANTROLENE SODIUM 25 MG PO SCH (13:00)
[2020-06-25] MEDS: GABAPENTIN 100 MG CAP PO SCH ×2 (13:21→17:40)
[2020-06-25] MEDS: OXYBUTYNIN 5 MG TAB PO SCH (13:21)
[2020-06-25] MEDS: tiZANidine 4 MG TAB PO SCH ×2 (13:22→17:39)
[2020-06-25] MEDS: methocarbamoL 500 MG TAB PO SCH ×3 (13:22→20:36)
[2020-06-25] MEDS: diazePAM 5 MG TAB PO SCH ×2 (13:22→20:35)
[2020-06-25 15:24] VITALS: BP 137/85
--- NOTE | 2020-06-25 15:39 | NUR ---
PATIENT HAS BEEN SCREENED AND CATEGORIZED MODERATE NUTRITION RISK. PATIENT WILL BE SEEN WITHIN 3-5 DAYS OF ADMISSION. 06/27/20 06/29/[address]
--- NOTE | 2020-06-25 17:16 | NUR ---
PATIENT RESTING IN BED, URINE SAMPLE COLLECTED AND SENT TO LAB.
[2020-06-25 18:01] LABS: APPEARANCE,URINE SL CLOUDY (CLEAR); BILIRUBIN,URINE 1+ (NEGATIVE); BLOOD, URINE 1+ (NEGATIVE); COLOR,URINE YELLOW (YELLOW); LEUKOCYTE ESTERASE ,URINE 1+ (NEGATIVE); NITRITE, URINE NEGATIVE (NEGATIVE); UGLUCOSE NEGATIVE (NEGATIVE)
[2020-06-25] MEDS ORDERED: MAGNESIUM OXIDE 400 MG TAB PO SCH (19:00)
[2020-06-25 19:06] LABS: BARBITURATE, URINE NEGATIVE ng/ml (NEG <=200); BENZODIAZEPINE, URINE POSITIVE ng/mL (NEG <=200); CANNABINOID, URINE POSITIVE ng/mL (NEG <=50); COCAINE, URINE NEGATIVE ng/mL (NEG <=300)
[2020-06-25 19:07] LABS: OPIATE, URINE POSITIVE ng/mL (NEG <=2000); PHENCYCLIDINE SCREEN,URINE NEGATIVE ng/mL (NEG <=25)
[2020-06-25 19:13] LABS: RBC,URINE 11-20 (MOD) /HPF (0-5); WBC,URINE 16-25 (MOD) /HPF (0-5)
--- NOTE | 2020-06-25 19:58 | NUR ---
REPORT GIVEN TO SCARLETT FOR CONTINUITY OF CARE. DENIES PAIN AT THIS TIME. IN STABLE CONDITION.
--- NOTE | 2020-06-25 19:59 | NUR ---
RECD. RESTING IN BED, AWAKE, A/OX4. RESPIRATION EVEN AND UNLABORED. IV OF NS AT 60 ML/HR INFUSING, RIGHT AC G20. PARAPLEGIC, DOES SELF CATHETERIZATION. WHEELCHAIR BOUND. WATCHING TV. VERBALIZED HE DOES NOT WANT TO BE WAKEN UP FOR VITAL SIGNS ESPECIALLY IF HE IS SLEEPING. DENIES PAIN 0/10.
[2020-06-25 20:00] VITALS: BP 119/70
--- NOTE | 2020-06-25 20:36 | NUR ---
DUE PO MEDICATIONS GIVEN. STILL WATCHING TV.
[2020-06-26] MEDS: GABAPENTIN 100 MG CAP PO SCH ×3 (00:19→12:00)
--- NOTE | 2020-06-26 00:19 | NUR ---
UNABLE TO SLEEP, MEDICATED WITH AMBIEN PER MD ORDER.
[2020-06-26] MEDS: NACL 0.9% 1,000 ML IV SCH ×2 (00:35→05:53)
--- NOTE | 2020-06-26 01:30 | NUR ---
SLEEPING COMFORTABLY IN BED.
--- NOTE | 2020-06-26 02:47 | NUR ---
Patient's Plan of Care was discussed and reviewed with RN CRITICAL CARE: SCARLETT ALFARO
[2020-06-26 04:00] VITALS: BP 138/100
--- NOTE | 2020-06-26 04:00 | NUR ---
IV INFILTRATED. WILL INSERT NEW IV LINE.
--- NOTE | 2020-06-26 05:30 | NUR ---
UNABLE TO FIND A GOOD IV LINE. NEW IV INSERTED BY CHARGE NURSE GIGI AT THE LEFT WRIST G22.
[2020-06-26] MEDS: diazePAM 5 MG TAB PO SCH ×2 (05:42→13:00)
--- NOTE | 2020-06-26 07:00 | NUR ---
CONDITION REMAIN STABLE, WILL ENDORSE TO AM SHIFT NURSE FOR CONTINUITY OF CARE.
--- NOTE | 2020-06-26 07:30 | NUR ---
RECEIVED PT AAOX4. NO SOB NOTED. NO C/O PAIN AT THIS TIME. INSTRUCTED PT TO CALL FOR ASSISTANCE, CALL LIGHT WITHIN REACH, PT VERBALIZED UNDERSTANDING.
[2020-06-26 07:42] LABS: HEMATOCRIT 41.5 % (36-52); HEMOGLOBIN 14.3 g/dL (12.0-18.0); MEAN CORPUSCULAR HEMOGLOBIN 31 pg (27-31); MEAN CORPUSCULAR HGB CONC 34 g/dL (33-37); PLATELET COUNT (AUTO) 291 K/uL (140-450); RED BLOOD CELL COUNT(AUTO) 4.67 MIL/uL (4.20-6.10); RED CELL DISTRIBUTION WIDTH 14.3 % (11.6-13.7); WHITE BLOOD COUNT (AUTO) 8.8 K/uL (4.8-10.8)
[2020-06-26 07:45] LABS: ANION GAP 12.1 (8-16); CARBON DIOXIDE 26.8 mmol/L (21-32); CREATININE 0.4 mg/dL (0.6-1.3)
[2020-06-26 07:50] LABS: POTASSIUM 2.9 mmol/L (3.5-5.1)
[2020-06-26 08:00] VITALS: BP 155/97
[2020-06-26 08:57] LABS: EOSINOPHILS % (MANUAL) 2 % (0-4); LYMPHOCYTES % (MANUAL) 22 % (20-46); MONOCYTES % (MANUAL) 8 % (5-12)
[2020-06-26] MEDS ORDERED: POTASSIUM CHLORIDE 40 MEQ, LIDOCAINE MPF 1% 25 MG in NACL 0.9% 250 ML IV SCH (09:00)
[2020-06-26] MEDS: tiZANidine 4 MG TAB PO SCH ×2 (09:39→13:00)
[2020-06-26] MEDS: PANTOPRAZOLE 40 MG TABEC PO SCH (09:39)
[2020-06-26] MEDS: methocarbamoL 500 MG TAB PO SCH ×2 (09:39→13:00)
[2020-06-26] MEDS: OXYBUTYNIN 5 MG TAB PO SCH (09:39)
[2020-06-26] MEDS ORDERED: CEPH250C16 PO (10:50)
[2020-06-26] MEDS: ONDANSETRON 4 MG/2 ML VIAL IM/IVP PRN (11:05)
[2020-06-26] MEDS: ACETAMINOPHEN 325 MG TAB PO PRN (11:06)
[2020-06-26] MEDS ORDERED: POTA10TE30 PO (12:15)
[2020-06-26] MEDS ORDERED: MAG400 PO (12:18)
[2020-06-26 14:24] LABS: T4 (THYROXINE) 13.6 ug/dL (4.5 - 12.0)
[2020-06-26 15:28] LABS: ANION GAP 10.8 (8-16); CARBON DIOXIDE 27.7 mmol/L (21-32); CREATININE 0.4 mg/dL (0.6-1.3); POTASSIUM 3.5 mmol/L (3.5-5.1)
--- NOTE | 2020-06-26 16:30 | NUR ---
DISCHARGE INSTRUCTIONS GIVEN TO PT WHICH VERBALIZED FULL UNDERSTANDING OF THE INSTRUCTIONS AND TEACHINGS GIVEN AND THE NEED TO FOLLOW UP WITH PCP IN 3-5 DAYS. PT MADE AWARE THAT HIS PRESCRIPTIONS ARE READY AT [facility]. ARM BANDS AND IV REMOVED, CANNULA TIP INTACT.
--- NOTE | 2020-06-26 16:50 | NUR ---
PT WHEELED TO THE FRONT PARKING LOT IN STABLE CONDITION. NO COMPLAINTS MADE. PT OS D/C HOME WITH HIS CAREGIVER/FRIEND.
== END 2020-06-26 16:50 | disposition home or self-care (01) ==
LOC: MED 20:10 → UNDOADMIN 22:25 → MTU 22:25
PROVIDERS: ADMIT Family Medicine; ATTEND Family Medicine
DX: A41.9 Sepsis, unspecified organism (principal); Z20.828 Contact with and (suspected) exposure to other viral communicable diseases; N39.0 Urinary tract infection, site not specified; E83.42 Hypomagnesemia; E87.6 Hypokalemia; G62.9 Polyneuropathy, unspecified; E78.5 Hyperlipidemia, unspecified; F41.9 Anxiety disorder, unspecified; N32.81 Overactive bladder; Z79.899 Other long term (current) drug therapy
CPT/HCPCS: 36415; 70450; 71045; 80048; 80053; 80061; 80305; 81001; 82150; 83036; 83690; 83735; 83880; 84100; 84439; 84443; 84484; 85025; 85610; 85730; 87040; 87081; 87086; 87426; 96361; 96365; 96366; 96367; 96375; 96376; 99285; G0378; J0696; J2001; J2405; J3480; J7030; J7060; 84436; 84479; 96372

== ENCOUNTER 2020-08-19 23:40 | Emergency (ER) | payer MEDICAID, SELFPAY ==
[~2020-08-19] VITALS: Ht 167.6 cm; Wt 65.8 kg
[~2020-08-19 23:40] MED LIST changes: -CEPH-1019 PO; +CEPH250C16 PO; +DIT5 PO; -DOCU-299 PO; -ELA25 PO; +MAG400 PO; +POTA10TE30 PO
[2020-08-19 23:46] VITALS: BP 140/94
--- NOTE | 2020-08-19 23:51 | NUR ---
w/c assist to bed 07.
--- NOTE | 2020-08-20 00:38 | NUR ---
55 YR OLD MALE AOX4 PRESENTED TO THE ER FOR CHIEF COMPLAINT OF RIGHT TOE PAIN. PATIENT STATED USING A POWERED WHEELCHAIR AND HITTING RIGHT TOE. PATIENT STATES 7/10 RIGHT TOE PAIN. PATIENT DESCRIBES IT A "NERVE PAIN". PATIENT RIGHT TOE AREA HAS SLIGHT SWELLING WITH 1/4INCH RED ALEXX AT THE BASE OF THE RIGHT TOE ON THE ANTERIOR SIDE. CAP REFILL LESS THAN 2 SECONDS IN ALL TOES. PATIENT DENIES ANY OTHER COMPLAINTS. HISTORY- COMPLETE PARALYSIS BELOW T7, 2 HERNIATED DISK ALLERGIES- NONE
--- NOTE | 2020-08-20 01:03 | NUR ---
X-Ray at bedside.
[2020-08-20] MEDS ORDERED: KETOROLAC 30 MG/ML VIAL IM ONE (01:55)
--- NOTE | 2020-08-20 02:34 | NUR ---
PATIENT FOUND AWAKE IN SEMI-GUAMAN'S POSITION ON BED. PATIENT STATES 0/10 PAIN, NO NAUSEA, AND NO OTHER DISCOMFORT. BED LOCKED IN LOWEST POSITION WITH 2 SIDE RAILS UP FOR SAFETY.
[2020-08-20 02:47] VITALS: BP 140/94
--- NOTE | 2020-08-20 02:47 | NUR ---
Patient discharged with v/s stable. Written and verbal after care instructions given and explained. Patient verbalized understanding. Wheel Chair Assisted with to LOBBY. All questions addressed prior to discharge. Advised to follow up with PMD.
== END 2020-08-20 02:47 | disposition home or self-care (01) ==
LOC: MED 23:40
DX: S90.111A Contusion of right great toe without damage to nail, initial encounter (principal); Z79.899 Other long term (current) drug therapy; X58.XXXA Exposure to other specified factors, initial encounter; Y93.89 Activity, other specified; Y92.89 Other specified places as the place of occurrence of the external cause; Y99.8 Other external cause status
CPT/HCPCS: 73660; 96372; 99283; J1885

== ENCOUNTER 2021-02-16 14:36 | Emergency (ER) | payer MEDICAID ==
[~2021-02-16] VITALS: Ht 167.6 cm; Wt 81.6 kg
[~2021-02-16 14:36] MED LIST changes: -MAG400 PO; +MAGN400T61 PO
--- NOTE | 2021-02-16 14:57 | NUR ---
PT W/C TO BED 8 FOR BEDSIDE TRIAGE.
[2021-02-16 15:00] VITALS: BP 94/74
--- NOTE | 2021-02-16 15:24 | NUR ---
DR BERNAL AT BEDSIDE FOR EXAM AND EVAL.
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
--- NOTE | 2021-02-16 15:30 | NUR ---
Patient provided urine sample via personal disposable self catheter kit
--- NOTE | 2021-02-16 15:37 | NUR ---
Urine sample collected, walked to lab and handed to CPT. Mark
[2021-02-16 15:41] LABS: APPEARANCE,URINE SL CLOUDY (CLEAR); BILIRUBIN,URINE 1+ (NEGATIVE); BLOOD, URINE 2+ (NEGATIVE); COLOR,URINE YELLOW (YELLOW); LEUKOCYTE ESTERASE ,URINE TRACE (NEGATIVE); NITRITE, URINE POSITIVE (NEGATIVE); UGLUCOSE NEGATIVE (NEGATIVE)
--- NOTE | 2021-02-16 15:54 | NUR ---
US at bedside with EMT male oracle database manager.
[2021-02-16 15:59] LABS: RBC,URINE 11-20 (MOD) /HPF (0-5)
[2021-02-16 16:02] LABS: BASOPHILS # (AUTO) 0.1 K/uL (0.00-0.22); BASOPHILS % (AUTO) 1.5 % (0.0-2.0); EOSINOPHILS # (AUTO) 0.1 K/uL (0-0.4); EOSINOPHILS % (AUTO) 1.8 % (0.0-4.0); HEMATOCRIT 44.7 % (36-52); LYMPHOCYTES % (AUTO) 16.7 % (20.5-51.1); MEAN CORPUSCULAR HEMOGLOBIN 30 pg (27-31); MEAN CORPUSCULAR HGB CONC 33 g/dL (33-37); MONOCYTES # (AUTO) 0.6 K/uL (0.8-1.0); MONOCYTES % (AUTO) 10.5 % (1.7-9.3); NEUTROPHILS # (AUTO) 4.2 K/uL (1.8-7.7); NEUTROPHILS % (AUTO) 69.5 % (42.2-75.2); PLATELET COUNT (AUTO) 254 K/uL (140-450); RED BLOOD CELL COUNT(AUTO) 4.97 MIL/uL (4.20-6.10); RED CELL DISTRIBUTION WIDTH 13.8 % (11.6-13.7)
--- NOTE | 2021-02-16 16:34 | NUR ---
Patient taken to CT scan via gurney by [employer].
[2021-02-16 16:41] LABS: ALBUMIN 3.6 g/dL (3.4-5.0); ANION GAP 10.9 (8-16); CREATININE 0.7 mg/dL (0.6-1.3); POTASSIUM 3.9 mmol/L (3.5-5.1); TOTAL BILIRUBIN 0.5 mg/dL (0.0-1.0)
--- NOTE | 2021-02-16 16:43 | NUR ---
Patient returned from CT scan.
[2021-02-16] MEDS ORDERED: LEVO750T51 PO (17:31)
[2021-02-16] MEDS ORDERED: levoFLOXacin 750 MG TAB PO ONE (17:35)
[2021-02-16] MEDS ORDERED: levoFLOXacin 750 MG TAB ONE (17:37)
[2021-02-16 17:46] VITALS: BP 121/66
--- NOTE | 2021-02-16 17:56 | NUR ---
Patient discharged with v/s stable. Written and verbal after care instructions given and explained. Results provided for follow up with PMD Patient alert, oriented and verbalized understanding of instructions. Wheel Chair Assisted with to home. All questions addressed prior to discharge. ID band removed. Patient advised to follow up with PMD. Rx of LEVOFLOXING given. Patient educated on indication of medication including possible reaction and side effects. Opportunity to ask questions provided and answered.
== END 2021-02-16 17:56 | disposition home or self-care (01) ==
LOC: MED 14:36
DX: N45.1 Epididymitis (principal); N43.3 Hydrocele, unspecified; Z79.899 Other long term (current) drug therapy; Z98.890 Other specified postprocedural states
CPT/HCPCS: 36415; 76870; 80053; 81001; 85025; 87086; 99285

== ENCOUNTER 2021-09-10 13:19 | Emergency (ER) | payer MEDICAID ==
[~2021-09-10] VITALS: Ht 167.6 cm; Wt 68.0 kg
[~2021-09-10 13:19] MED LIST changes: +LEVO750T51 PO; +POTA10TA70 PO; -POTA10TE30 PO
[2021-09-10 13:58] VITALS: BP 109/64
--- NOTE | 2021-09-10 14:22 | NUR ---
PT TAKEN TO CT VIA YAIR
--- NOTE | 2021-09-10 14:54 | NUR ---
18G IV ESTABLISHED IN [facility] AND BLOODWORK COLLECTED. BLOOD WALKED TO LAB Addendum: 09/10/21 at 1506 by [email or web address] IV IN Ashley ARREOLA
[2021-09-10 14:58] LABS: BASOPHILS % (AUTO) 0.2 % (0.0-2.0); EOSINOPHILS # (AUTO) 0.2 K/uL (0-0.4); EOSINOPHILS % (AUTO) 2.2 % (0.0-4.0); HEMATOCRIT 43.5 % (36-52); HEMOGLOBIN 14.9 g/dL (12.0-18.0); LYMPHOCYTES # (AUTO) 1.5 K/uL (2.0-11.5); LYMPHOCYTES % (AUTO) 18.5 % (20.5-51.1); MEAN CORPUSCULAR HEMOGLOBIN 30 pg (27-31); MEAN CORPUSCULAR HGB CONC 34 g/dL (33-37); MEAN CORPUSCULAR VOLUME 87.2 fL (80-94); MONOCYTES # (AUTO) 1.4 K/uL (0.8-1.0); MONOCYTES % (AUTO) 17.4 % (1.7-9.3); NEUTROPHILS # (AUTO) 4.9 K/uL (1.8-7.7); NEUTROPHILS % (AUTO) 61.7 % (42.2-75.2); PLATELET COUNT (AUTO) 250 K/uL (140-450); RED BLOOD CELL COUNT(AUTO) 4.99 MIL/uL (4.20-6.10); RED CELL DISTRIBUTION WIDTH 14.4 % (11.6-13.7)
[2021-09-10 15:23] LABS: ANION GAP 13.4 (8-16); CARBON DIOXIDE 26.1 mmol/L (21-32); CREATININE 0.5 mg/dL (0.6-1.3); POTASSIUM 3.5 mmol/L (3.5-5.1)
--- NOTE | 2021-09-10 15:27 | NUR ---
56 Y/O MALE C/O DIZZINESS X2 MONTHS, BODY PAIN 8/10 AND URINARY RETENTION X1WEEK. PER PATIENT HE IS EXPERINCING UPPER ABDOMINAL PAIN THAT IS SHARP LIKE. UPON PALPATION ABDOMEN IS TENDER/SOFT TO TOUCH AND MAKES PAIN WORSE. PT ALSO EXPERINCING N/V X1 WEEK. DENIES FEVER, STATES +CHILLS. PT A&OX4, SKIN DRY AND INTACT. PMH: VERTIGO, SPINAL CORD INJURY NKA
[2021-09-10 15:34] LABS: ALBUMIN 3.3 g/dL (3.4-5.0); BILIRUBIN,DIRECT 0.1 mg/dL (0.0-0.3); TOTAL BILIRUBIN 0.5 mg/dL (0.0-1.0)
--- NOTE | 2021-09-10 16:02 | NUR ---
URINE COLLECTED AND WALKED TO LAB
--- NOTE | 2021-09-10 16:03 | NUR ---
Patient appears to be resting comfortably in bed. Vital Signs within normal limits. Respirations even and unlabored.
[2021-09-10 16:16] LABS: BILIRUBIN,URINE NEGATIVE (NEGATIVE); BLOOD, URINE 1+ (NEGATIVE); COLOR,URINE YELLOW (YELLOW); LEUKOCYTE ESTERASE ,URINE 2+ (NEGATIVE); NITRITE, URINE NEGATIVE (NEGATIVE); UGLUCOSE NEGATIVE (NEGATIVE)
[2021-09-10 16:42] LABS: APPEARANCE,URINE CLOUDY (CLEAR)
[2021-09-10 16:43] LABS: RBC,URINE 11-20 (MOD) /HPF (0-5); WBC,URINE TOO MANY TO COUNT /HPF (0-5)
[2021-09-10] MEDS ORDERED: CEPH-588 PO (16:58)
[2021-09-10 17:35] VITALS: BP 125/73
--- NOTE | 2021-09-10 17:35 | NUR ---
Patient discharged with v/s stable. Written and verbal after care instructions given FOR DYSURIA/UTI and explained. Patient alert, oriented and verbalized understanding of instructions. W/C ASSISTED to car. All questions addressed prior to discharge. ID band removed. Patient advised to follow up with PMD. Rx of KEFLEX given. Patient educated on indication of medication including possible reaction and side effects. Opportunity to ask questions provided and answered.
--- NOTE | 2021-09-12 16:22 | NUR ---
LATE ENTRY---Urine culture results received from lab. Results shown to Dr. WORRELL . No new orders needed at this time. Treatment appropriate. Copy placed in C&S folder.
== END 2021-09-10 17:35 | disposition home or self-care (01) ==
LOC: MED 13:19
DX: N39.0 Urinary tract infection, site not specified (principal); K21.9 Gastro-esophageal reflux disease without esophagitis; Z79.899 Other long term (current) drug therapy
CPT/HCPCS: 36415; 71045; 80048; 80076; 81001; 83690; 84484; 85025; 87086; 93005; 99285

== ENCOUNTER 2021-12-31 17:56 | Emergency (ER) | payer MEDICAID ==
[~2021-12-31] VITALS: Ht 167.6 cm; Wt 74.8 kg
[~2021-12-31 17:56] MED LIST changes: +CEPH-588 PO
[2021-12-31 18:16] VITALS: BP 113/77
[2021-12-31 19:32] LABS: BASOPHILS # (AUTO) 0.2 K/uL (0.00-0.22); BASOPHILS % (AUTO) 1.7 % (0.0-2.0); EOSINOPHILS # (AUTO) 0.2 K/uL (0-0.4); HEMATOCRIT 46.2 % (36-52); HEMOGLOBIN 15.6 g/dL (12.0-18.0); LYMPHOCYTES # (AUTO) 1.9 K/uL (2.0-11.5); LYMPHOCYTES % (AUTO) 17.9 % (20.5-51.1); MEAN CORPUSCULAR HEMOGLOBIN 29 pg (27-31); MEAN CORPUSCULAR HGB CONC 34 g/dL (33-37); MEAN CORPUSCULAR VOLUME 86.4 fL (80-94); MONOCYTES # (AUTO) 0.9 K/uL (0.8-1.0); MONOCYTES % (AUTO) 8.3 % (1.7-9.3); NEUTROPHILS # (AUTO) 7.5 K/uL (1.8-7.7); NEUTROPHILS % (AUTO) 70.1 % (42.2-75.2); PLATELET COUNT (AUTO) 287 K/uL (140-450); RED BLOOD CELL COUNT(AUTO) 5.35 MIL/uL (4.20-6.10); RED CELL DISTRIBUTION WIDTH 14.9 % (11.6-13.7); WHITE BLOOD COUNT (AUTO) 10.8 K/uL (4.8-10.8)
[2021-12-31 19:53] LABS: ALBUMIN 3.7 g/dL (3.4-5.0); ANION GAP 7.2 (8-16); CARBON DIOXIDE 32.6 mmol/L (21-32); CREATININE 0.6 mg/dL (0.6-1.3); POTASSIUM 3.8 mmol/L (3.5-5.1); TOTAL BILIRUBIN 0.4 mg/dL (0.0-1.0)
--- NOTE | 2021-12-31 20:00 | NUR ---
PT TAKEN TO ULTRASOUND
--- NOTE | 2021-12-31 21:23 | NUR ---
URINE COLLECTED AND WALKED TO LAB
[2021-12-31 21:28] LABS: BILIRUBIN,URINE NEGATIVE (NEGATIVE); BLOOD, URINE NEGATIVE (NEGATIVE); COLOR,URINE YELLOW (YELLOW); LEUKOCYTE ESTERASE ,URINE 2+ (NEGATIVE); NITRITE, URINE POSITIVE (NEGATIVE); UGLUCOSE NEGATIVE (NEGATIVE)
[2021-12-31 21:43] LABS: APPEARANCE,URINE HAZY (CLEAR)
[2021-12-31 21:45] LABS: RBC,URINE 0-5 /HPF (0-5); WBC,URINE TOO MANY TO COUNT /HPF (0-5)
[2021-12-31] MEDS ORDERED: CEPH-588 PO (22:02)
--- NOTE | 2021-12-31 22:39 | NUR ---
Patient discharged with v/s stable. Written and verbal after care instructions given and explained. Patient alert, oriented and verbalized understanding of instructions. Wheel Chair Assisted with to home. All questions addressed prior to discharge. ID band removed. Patient advised to follow up with PMD. Rx of KEFLEX given. Patient educated on indication of medication including possible reaction and side effects. Opportunity to ask questions provided and answered.PT LEFT THE HOSPITAL WITHOUT DISCHARGE INSTRUCTIONS.
--- NOTE | 2022-01-04 11:44 | NUR ---
LATE ENTRY. RECEIVED POSITIVE URINE CULTURE. DISCREPANCY LOG SIGNED BY DR HANNA, TREATMENT APPROPRIATE. FORM PLACED IN BINDER.
== END 2021-12-31 22:39 | disposition home or self-care (01) ==
LOC: MED 17:56
DX: N39.0 Urinary tract infection, site not specified (principal); Z98.890 Other specified postprocedural states; Z79.2 Long term (current) use of antibiotics; Z79.899 Other long term (current) drug therapy; Z79.891 Long term (current) use of opiate analgesic
CPT/HCPCS: 36415; 76705; 80053; 81001; 83690; 85025; 87086; 99284; Q0092